=== PATIENT | male | born 1965 | race Caucasian/White ===

== ENCOUNTER 2021-02-16 05:12 | Emergency (ER) | payer MEDICARE, SELFPAY ==
[2021-02-16] VITALS (15 sets, daily range): BP systolic 112–142; BP diastolic 68–98; PULSE 80–120; RESP 11–18; TEMP 36.7–37.1; O2SAT 99–100; BMI 20.2
--- NOTE | ~2021-02-16 | CT_ITS ---
EXAMINATION: NONCONTRAST HEAD CT NONCONTRAST CERVICAL SPINE CT INDICATION INFORMATION: Fall, EtOH COMPARISON: None TECHNIQUE: Separate noncontrast CT examinations of the head and cervical spine were performed. Coronal head CT images and coronal and sagittal cervical spine images were created at the technologist workstation. DLP: 1067 mGy-cm DOSE LOWERING TECHNIQUES: This CT examination was performed using dose optimization techniques as appropriate, variously including the following: - Automated exposure control - Adjustment of mA and/or kV according to patient size (this includes techniques or standardized protocols for targeted exams were dose is matched to indication/reason for exam; i.e. extremities or head) - Use of iterative reconstruction technique FINDINGS: Head: There is no evidence of acute intracranial hemorrhage or territorial infarction. No abnormal mass-effect or midline shift is seen. Smith to white matter differentiation is well preserved. No extra-axial fluid collections are identified. The ventricles are normal in size. There is no abnormal attenuation within the brain parenchyma. The osseous structures and soft tissues are normal. The mastoid air cells and visualized portions of the paranasal sinuses are well-aerated. Cervical spine: There is grade 1 anterolisthesis of C2 on C3 and C3 on C4 which is favored to be chronic/degenerative in nature in the setting of multilevel moderate facet arthropathy. Vertebral body heights are maintained. There is mild multilevel disc space narrowing and minimal endplate osteophyte formation. No evidence of acute fracture. No prevertebral soft tissue swelling. Visualized portions of the lung apices are unremarkable. The thyroid gland is unremarkable. CT/CT cervical spine wo con IMPRESSION: No acute findings identified in the head or cervical spine. Chronic appearing and degenerative changes as noted above.
--- NOTE | 2021-02-16 05:18 | ED.GENADULT ---
HPI - General Adult General Chief complaint: Fall Stated complaint: head lac Time Seen by Provider: 02/16/21 05:17 Source: patient and EMS Mode of arrival: EMS Limitations: no limitations History of Present Illness HPI narrative: Patient is coming from home, patient is known to drink alcohol. Patient states that he was getting up to go to the bathroom, slipped in the bathroom and hit his head on the floor. Patient did not lose consciousness, patient is not on any blood thinners. However, patient has a large laceration to the right side of the scalp. Per EMS, patient had perfuse bleeding and lost a significant amount of blood in his apartment. Patient complaining of neck pain due to the c-collar but denies having pain before that. Patient denies any other injuries. Related Data Allergies Allergy/AdvReac Type Severity Reaction Status Date / Time morphine [MORPHINE] AdvReac Unknown ITCHY Verified 02/16/21 05:32 PEPPERS Allergy Unknown HIVES Uncoded 02/16/21 05:32 Review of Systems Review of Systems: Constitutional : No Weight loss, No Fever, No Chills, No Night Sweats, No Fatigue, No Malaise ENT/Mouth : No Hearing loss, No Ear Pain, No Nasal Congestion, No Sinus Pain, No Hoarseness, No sore throat, No Rhinorrhea, No Swallowing Difficulty Eyes: No Eye Pain, No Swelling, No Redness, No Foreign Body, No Discharge, No Vision Changes Cardiovascular : No Chest Pain, No SOB, No Dyspnea on Exertion, No Orthopnea, No Edema, No Palpitations Respiratory : No Cough, No Sputum, No Wheezing, No Smoke Exposure, No Dyspnea Gastrointestinal : No Nausea, No Vomiting, No Diarrhea, No Constipation, No abdominal Pain, No Hematochezia, No Melena Genitourinary : no irregular bleeding, No Dysuria, No Urinary Frequency, No Hematuria, No Urinary Incontinence, No Urgency, No Flank Pain, No Urinary Flow Changes, No Hesitancy Musculoskeletal : No joint pain, No Myalgias, No Joint Swelling Skin : laceration to the right side of the scalp Neuro : No Weakness, No Numbness, No Paresthesias, No Loss of Consciousness, No Dizziness, No Headache Psych : No Anxiety/Panic, No Depression, No SI/HI/AH/VH, No Social Issues, Heme/Lymph: No Bruising, No Bleeding,No Lymphadenopathy Endocrine : No Polyuria, No Polydipsia, No Temperature Intolerance [facility] Past Medical History Medical History Alcohol abuse TBI (traumatic brain injury) Social History Social History Alcohol intake: current Alcohol intake frequency: holidays/special occasions only Patient Tobacco Use Status: Never used Tobacco Use of substances other than those prescribed or required for medical reasons: No Advance Directives: No Advance Directives Information Provided: Yes Physical Exam Vital Signs: Vital Signs: Last Vital Signs Temp 98.0 F 02/16/21 05:52 Pulse 120 H 02/16/21 06:00 Resp 16 02/16/21 05:52 BP 112/80 02/16/21 05:52 Pulse Ox 100 02/16/21 05:52 Body Mass Index 20.2 Const: Other: Appearance: Alert. Oriented X3. No acute distress. Eyes: Pupils equal, round and reactive to light. ENT: Pharynx normal. Neck: Normal inspection. Neck supple. No lymph nodes noted. No crepitus CVS: Normal heart rate and rhythm. Pulses normal. Normal S1 and S2 Respiratory: No respiratory distress. Breath sounds normal. No Wheezing. No rales Abdomen: Soft and nontender. No rigidity. No distention. good BS x4 Skin: Skin warm and dry. Patient is pale, Normal skin turgor. Extremities: No lower extremity edema. No Lacerations. No Rash Neuro: Oriented X 3. No motor deficit. No sensory deficit. Moving all extermities. No slurred speech. Neurologically intact Course Course Course Narrative: Head and neck CT do not show any acute pathology Patient had profuse bleeding from 1 small artery, which was sutured with Vicryl. Bleeding stopped. Patient feeling well, bleeding stopped. Patient does look pale, H&H pending Patient received approximately for internal stitches, 5 external stitches Patient is a hard stick, Phobotomy is coming to draw blood. Labs pending. Sign-out given to Dr. Stark Procedures Laceration Laceration 1: Site: scalp Size (cm): 2 Description: linear Depth: involves muscle layer Local Anesthetic: lidocaine 2% Amount of anesthesia used (mL): 6 Pre-repair: wound explored Skin layer closed with: nylon Size (cm): 3-0 Number of sutures: 5 Technique: simple, interrupted Subcutaneous layer closed with: vicryl Size: 3-0 Number of sutures: 4 Technique: simple, interrupted Medical Decision Making Imaging Data CT cervical spine and head CT: Attestation: I personally reviewed and interpreted this imaging study as follows: Radiologist's impression: FINDINGS: Head: There is no evidence of acute intracranial hemorrhage or territorial infarction. No abnormal mass-effect or midline shift is seen. Smith to white matter differentiation is well preserved. No extra-axial fluid collections are identified. The ventricles are normal in size. There is no abnormal attenuation within the brain parenchyma. The osseous structures and soft tissues are normal. The mastoid air cells and visualized portions of the paranasal sinuses are well-aerated. Cervical spine: There is grade 1 anterolisthesis of C2 on C3 and C3 on C4 which is favored to be chronic/degenerative in nature in the setting of multilevel moderate facet arthropathy. Vertebral body heights are maintained. There is mild multilevel disc space narrowing and minimal endplate osteophyte formation. No evidence of acute fracture. No prevertebral soft tissue swelling. Visualized portions of the lung apices are unremarkable. The thyroid gland is unremarkable. CT/CT cervical spine wo con IMPRESSION: No acute findings identified in the head or cervical spine. Chronic appearing and degenerative changes as noted above. Discharge Plan Discharge Clinical Impression: Fall, Laceration of scalp Instructions: Laceration (ED), Fall Prevention for Older Adults (ED), Fall Prevention (ED) Additional Instructions: Your sutures need to be removed in 7-10 days. You may come to the emergency room, urgent care or with her primary care physician. If you see any signs of infection such as localized redness, pus drainage, fever or chills, please return to the emergency room. Please follow-up with your primary care physician tomorrow. If you have any worsening or new symptoms, please return to the emergency room or call 911
[2021-02-16] MEDS: Lidocaine HCl 2 % MPF 5 ML VIAL 10 ML INFILTRATI (05:51)
--- NOTE | 2021-02-16 06:50 | PC.NURSE ---
head lac was clean with saline solution ,patient was clean up and change into hospital attire ,bedding was also change , assist dr cross with patient lac suturing ,patient resting comfortable in bed .
[2021-02-16 07:09] LABS: MANUAL DIFF FLAG NO
[2021-02-16 07:10] LABS: Basophils Percent Auto 0.6 % (0-2); Imm Gran Abs Auto 0.02 X10*3/uL (0.00-0.03); Imm Gran Pct Auto 0.4 % (0.0-0.4); Lymphocytes Absolute Auto 1.8 X10*3/uL (1.2-4.9); Lymphocytes Percent Auto 34.3 % (20-40); Mean Corpuscular HGB Conc 32.6 g/dl (31.0-36.0); Mean Corpuscular Hemoglobin 34.8 pg (27.0-33.0); Mean Corpuscular Volume 106.7 fL (80-98); Mean Platelet Volume 9.6 fL (9.4-12.4); Monocytes Absolute Auto 0.5 X10*3/uL (0.1-1.2); Monocytes Percent Auto 9.2 % (2-11); Neutrophils Percent Auto 55.5 % (45-73); Platelet Count 120 X10*3/uL (160-400); Red Blood Count 1.64 X10*6/uL (4.60-5.80); Red Cell Distribution Width 14.9 % (11.0-16.0); White Blood Count 5.3 X10*3/uL (4.8-10.8)
[2021-02-16 07:29] LABS: Hemoglobin 5.7 g/dl (14.0-18.0)
[2021-02-16 07:30] LABS: Hematocrit 17.5 % (42-52)
[2021-02-16 07:35] LABS: Ethanol 176 mg/dL
[2021-02-16 07:40] LABS: Alanine Aminotransferase 23 U/L (0-40); Alkaline Phosphatase 191 U/L (39-117); Aspartate Amino Transferase 43 U/L (5-37); Bilirubin Direct 0.2 mg/dL (0.0-0.5); Bilirubin Total 0.3 mg/dL (0.0-1.0); Blood Urea Nitrogen 9 mg/dL (9-16); Calcium 7.4 mg/dL (8.4-10.2); Creatinine Clr Calc Pharmacy 60.2; Estimated Glomerular Filt Rate > 60; Glucose Random 144 mg/dL (60-115); Total Protein 5.1 g/dL (6.5-8.0)
[2021-02-16 08:03] LABS: Albumin Level 1.9 g/dL (3.5-5.0); Anion Gap 25 (12-20); Carbon Dioxide 20 mmol/L (22-29); Chloride 98 mmol/L (96-108); Potassium 3.9 mmol/L (3.3-5.1); Sodium 139 mmol/L (135-145)
[2021-02-16 08:26] LABS: OBS Int Ctl Valid YES; OBS1 NEGATIVE (NEGATIVE)
--- NOTE | 2021-02-16 08:28 | PC.NURSE ---
attempted to call lab to draw pts lab d.t tough stick. will call back again.
--- NOTE | 2021-02-16 08:41 | PC.NURSE ---
lab aware pt needs type and screen. this RN attempted for IV and was unsuccessful. Another RN to try with ultrasound.
[2021-02-16] MEDS: ondansetron HCL 4 MG/2 ML VIAL IVPUSH (10:11)
--- NOTE | 2021-02-16 12:40 | PC.NURSE ---
blood going at very slow rate, per MD blood on pressure bag at this time. vss.
== END 2021-02-16 17:15 | disposition home or self-care (01) ==
PROVIDERS: Emergency Medicine; Emergency Provider Emergency Medicine
DX: S01.01XA Laceration without foreign body of scalp, initial encounter (principal); W01.10XA Fall on same level from slipping, tripping and stumbling with subsequent striking against unspecified object, initial encounter; F10.10 Alcohol abuse, uncomplicated; Y90.6 Blood alcohol level of 120-199 mg/100 ml; Y93.01 Activity, walking, marching and hiking; Y92.002 Bathroom of unspecified non-institutional (private) residence as the place of occurrence of the external cause; Y99.9 Unspecified external cause status; E11.9 Type 2 diabetes mellitus without complications
CPT/HCPCS: 12031; 36415; 36430; 70450; 72125; 80048; 80076; 82077; 82272; 85025; 86850; 86900; 86901; 86923; 99285; J2405; P9016

== ENCOUNTER 2021-03-03 21:39 | Inpatient (IN) | payer MEDICARE, SELFPAY ==
[2021-03-03] VITALS (11 sets, daily range): BP systolic 59–119; BP diastolic 36–81; PULSE 29–74; RESP 20–28; TEMP 31.2–32.4; O2SAT 79–96; BMI 25.0
--- NOTE | ~2021-03-03 | CT_ITS ---
EXAMINATION: CT CHEST, ABDOMEN AND PELVIS WITHOUT CONTRAST CLINICAL INFORMATION: Hypoxia. Unresponsive. Abdominal pain. COMPARISON: Chest x-ray March 03, 2021 TECHNIQUE: Multidetector volumetric CT imaging of the chest, abdomen and pelvis was obtained without oral or intravenous contrast. Coronal and sagittal reformatted images are performed at CT scanner [This CT examination was performed using dose optimization techniques as appropriate, variously including the following: *Automated exposure control *Adjustment of mA and/or kV according to patient size (this includes techniques or standardized protocols for targeted exams where dose is matched to indication/reason for exam; i.e. extremities or head) *Use of iterative reconstruction technique] DLP: 1806 mGy-cm. FINDINGS: Artifact from imaging with patient's arms at the side. There is breathing motion. CT CHEST: Lungs: Dense consolidation with air bronchogram at the dependent left lung base. There are patchy parenchymal airspace opacities in the right lower lobe. There are also a few smaller patchy airspace opacities in the anterior left upper lobe. Mediastinum: No mediastinal mass or significant lymphadenopathy. There are shotty subcentimeter lymph nodes at the pretracheal retrovascular space and AP window. Pleura: Small volume bilateral dependent pleural effusions. Axilla: No lymphadenopathy. CT ABDOMEN AND PELVIS: Liver, Gallbladder and Biliary Tree: Marked low density of liver parenchyma consistent with fatty change. No focal liver lesion or intrahepatic bile duct dilatation. Right lobe of liver measures 15 cm superior inferior. Gallbladder is moderately distended. No edema around the gallbladder. No calcified gallstone. No dilatation of the common bile duct. Pancreas: Multiple coarse calcifications in the parenchyma of the pancreas consistent with a chronic pancreatitis. No acute abnormality. No acute inflammation. No mass or pseudocyst. No pancreatic duct dilatation. Spleen: Spleen normal in size and contour. No focal lesion. Adrenal Glands: Adrenal glands are normal in size. No focal mass. Kidneys and Ureters: The kidneys are normal in size, shape, and attenuation. No hydronephrosis, hydroureter, or calculi seen. No perinephric stranding. Bladder: Bladder is empty. Mcmanus catheter within the bladder. Gastrointestinal Tract: There are scattered diverticula of the colon. There is no diverticulitis. There is no bowel wall thickening /edema. There is no bowel obstruction. There is a moderate volume of stool in the colon. The appendix is nonvisualized . The small bowel loops are unremarkable. The stomach is normal. There is no hiatal hernia. Mesentery: Moderate volume of abdominal ascites. No free air. No focal inflammation or abscess. Abdominal Wall: No significant hernia is appreciated. Lymph Nodes: Normal. Vascular: Unremarkable. Pelvic Viscera: [place] for penile implant in right lower quadrant. Osseous Structures: No acute osseous abnormality. Moderate degenerative spondylosis of the spine. CT/CT abdomen pelvis wo con IMPRESSION: 1. CT chest. Bilateral airspace disease and small bilateral pleural effusions. 2. Marked low attenuation of liver parenchyma, fatty change. 3. Calcifications of pancreas due to chronic pancreatitis. No acute inflammation.. 4. Moderate volume of abdominal ascites 5. Mcmanus catheter present.
--- NOTE | ~2021-03-03 | CT_ITS ---
EXAMINATION: CT HEAD WITHOUT CONTRAST CLINICAL INFORMATION: Unresponsive COMPARISON: 02/16/2021 TECHNIQUE: Contiguous axial imaging was performed from the skull base to vertex without intravenous contrast. This CT examination was performed using dose optimization techniques as appropriate, variously including the following: * Automated exposure control * Adjustment of mA and/or kV according to patient size (this includes techniques or standardized protocols for targeted exams where dose is matched to indication/reason for exam; i.e. extremities or head) Use of iterative reconstruction technique DLP: 742 mGy-cm. FINDINGS: There is no evidence of acute intracranial hemorrhage or territorial infarction. No abnormal mass effect or midline shift is seen. Smith to white matter differentiation is well preserved. No extra-axial fluid collections are identified. No hydrocephalus. No significant volume loss. Patchy periventricular and deep white matter hypoattenuation is consistent with mild small vessel ischemic changes. The osseous structures and soft tissues are normal. The mastoid air cells and visualized portions of the paranasal sinuses are well aerated. CT/CT head/brain wo con IMPRESSION: No acute intracranial pathology.
--- NOTE | ~2021-03-03 | XR_ITS ---
EXAMINATION: XR CHEST CLINICAL INFORMATION: Unresponsive. Hypoxia. COMPARISON: None TECHNIQUE: Frontal view of the chest was obtained. FINDINGS: Small layering left-sided pleural effusion is noted. Bilateral perihilar and right lower lobar nonspecific patchy airspace disease is present. Specific note is made of dense retrocardiac airspace consolidation at left lower lobe. The cardiac mediastinal silhouette is within normal limits. Visualized upper abdomen is unremarkable. XR/XR chest 1V IMPRESSION: Abnormal chest radiograph showing evidence of bilateral perihilar and right lower lobar patchy airspace disease and dense airspace consolidation at left lower lobe in the retrocardiac region associated with layering small left-sided pleural effusion.
--- NOTE | ~2021-03-03 | XR_ITS ---
EXAMINATION: XR CHEST CLINICAL INFORMATION: Confirm tube placement COMPARISON: 03/03/2021 10:10 PM TECHNIQUE: Frontal view of the chest was obtained. FINDINGS: Since the prior study, the patient has been intubated with the ET tube about 4.8 cm above the nyla. An NG tube has been placed with its tip in the stomach. A right IJ catheter has been placed with its tip in the SVC. Again seen is dense retrocardiac opacity with obscuration left hemidiaphragm consistent with atelectasis/collapse and or effusion which appears increased when compared to the recent study. Bilateral patchy diffuse airspace disease also appears increased when compared to the study from 2 hours ago. XR/XR chest 1V IMPRESSION: ET tube NG tube and right IJ line all appear to be in good position. Worsening pulmonary disease as described above
--- NOTE | 2021-03-03 21:50 | ECG_ITS ---
Test Reason : unresponsive Blood Pressure : / mmHG Vent. Rate : 122 BPM Atrial Rate : 141 BPM P-R Int : 000 ms QRS Dur : 072 ms QT Int : 346 ms P-R-T Axes : 000 063 254 degrees QTc Int : 493 ms Poor data quality Possible Sinus bradycardia Low voltage QRS ST & T wave abnormality, consider inferior ischemia Abnormal ECG When compared with ECG of 23-DEC-2014 09:14, Significant changes have occurred Clinical Correlation Advised Referred By: Elba Bhatt Electronically Signed By:JUAN M LYN MD
[2021-03-03 22:06] LABS: VBG Base Excess -8.7 mmol/L; VBG HCO3 15 mmol/L (22-26); VBG pCO2 25 mmHg; VBG pH 7.37 (7.32-7.43); VBG pO2 78 mmHg; Venous Blood Gas Refer to POC result
[2021-03-03 22:12] LABS: Glucose, Whole Blood 130 mg/dL (60-115)
[2021-03-03 22:17] LABS: Appearance Urine HAZY; Color Urine YELLOW; Glucose Urine UA NEG (NEG); Leukocyte Esterase Urine 3+ (NEG); Nitrite Urine NEG (NEG); Specific Gravity - Urine 1.015 (1.005-1.025); UACC Culture Trigger YES; Urine Blood 2+ (NEG); Urine Ketones 5 MG/DL (NEG); Urine Protein TRACE MG/DL (NEG-TRACE)
[2021-03-03 22:19] LABS: OBS Int Ctl Valid YES; OBS1 POSITIVE (NEGATIVE)
[2021-03-03 22:23] LABS: Ethanol < 10 mg/dL
[2021-03-03 22:23] LABS: Lactic Acid 12.7 mmol/L (0.5-2.0)
[2021-03-03 22:24] LABS: INTERNATIONAL NORM RATIO 2.7 (0.9-1.1); Prothrombin Time 30.8 SEC (9.9-13.0)
[2021-03-03 22:26] LABS: WBC Urine 30-49 /HPF (0-4)
[2021-03-03 22:27] LABS: COVID-19 Test Negative (Negative)
[2021-03-03 22:27] LABS: Bacteria Urine 3+ /LPF; Mucus Urine TRACE /LPF; Renal Epithelial Cells Urine TRACE /LPF; WBC Clumps Urine NOTED
[2021-03-03 22:29] LABS: Alanine Aminotransferase 34 U/L (0-40); Albumin Level 1.4 g/dL (3.5-5.0); Alkaline Phosphatase 264 U/L (39-117); Anion Gap 27 (12-20); Aspartate Amino Transferase 34 U/L (5-37); Bilirubin Total 0.4 mg/dL (0.0-1.0); Blood Urea Nitrogen 21 mg/dL (9-16); Calcium 6.8 mg/dL (8.4-10.2); Carbon Dioxide 15 mmol/L (22-29); Chloride 90 mmol/L (96-108); Creatinine Clr Calc Pharmacy 17.3; Estimated Glomerular Filt Rate 15; Glucose Random 144 mg/dL (60-115); Magnesium 1.3 mg/dL (1.6-2.6); Potassium 3.7 mmol/L (3.3-5.1); Sodium 128 mmol/L (135-145); Total Protein 4.3 g/dL (6.5-8.0)
[2021-03-03] MEDS: cefTRIAXone sodium 1 GM in 0.9 % Sodium Chloride 50 ML IV (22:30)
[2021-03-03 22:31] LABS: Amphetamine Screen Urine Not Detected (Not Detect); Barbiturates, Urine Not Detected (Not Detect); Benzodiazepines Screen Urine Not Detected (Not Detect); Cannabinoid Screen Urine Not Detected (Not Detect); Cocaine Screen Urine Not Detected (Not Detect); Fentanyl, urine POSITIVE (Not Detect); Opiate Screen Urine POSITIVE (Not Detect); Phencyclidine Screen Urine Not Detected (Not Detect)
[2021-03-03 22:31] LABS: Troponin-I High Sensitivity 5.8 ng/L (<3.5-35.0)
[2021-03-03 22:32] LABS: Hematocrit 22.4 % (42.0-52.0); Hemoglobin 7.7 g/dl (14.0-18.0); Mean Corpuscular HGB Conc 34.4 g/dl (31.0-36.0); Mean Corpuscular Hemoglobin 33.2 pg (27.0-33.0); Mean Corpuscular Volume 96.6 fL (80.0-98.0); Mean Platelet Volume 11.7 fL (9.4-12.4); Red Blood Count 2.32 X10*6/uL (4.60-5.80); Red Cell Distribution Width 17.2 % (11.0-16.0)
--- NOTE | 2021-03-03 22:39 | ED_ITS ---
HPI - Altered Mental Status General Chief Complaint: Altered Mental Status Stated Complaint: Unresponsive Time Seen by Provider: 03/03/21 21:50 Source: EMS Mode of arrival: EMS History of Present Illness HPI narrative: 55-year-old male with history of IVDA who is brought in by EMS from home after being found unresponsive, hypoxic, hypotensive, and hypoglycemic. As per EMS there was limited information able to be obtained from family and they state that patient was given both D10, glucagon, and Narcan. EMS states that EN route patient was noted to become more responsive but only to pain, but they did not note pinpoint pupils on initial evaluation. EMS states that on nasal cannula patient was able to be oxygenated to 98%. Related Data Allergies Allergy/AdvReac Type Severity Reaction Status Date / Time morphine [MORPHINE] AdvReac Unknown ITCHY Verified 02/16/21 05:32 PEPPERS Allergy Unknown HIVES Uncoded 02/16/21 05:32 Review of Systems Review of Systems: Yes Unobtainable due to mental condition PMFSH Past Medical History Source: nursing notes reviewed Medical History Alcohol abuse TBI (traumatic brain injury) Social History Social History Household Members: Unknown / Unable to assess Unable to assess alcohol history related to: Unable to respond and Unknown Alcohol intake: current Alcohol intake frequency: holidays/special occasions only Patient Tobacco Use Status: Never used Tobacco Physical Exam Vital Signs: Vital Signs: Last Vital Signs Temp 96.6 F L 03/04/21 11:00 Pulse 74 03/04/21 11:00 Resp 27 H 03/04/21 11:00 BP 86/43 L 03/04/21 11:00 Pulse Ox 88 L 03/04/21 11:00 Body Mass Index 25.0 VITAL SIGNS: Reviewed. GENERAL: Chronically ill, cachectic, HEAD: Normocephalic/atraumatic EYES: PERRLA, EOMI OROPHARYNX: no oral lesions noted, posterior pharynx clear, dry mucosa NECK: Supple, no adenopathy LUNGS: No breath sounds noted in left lower base and scattered coarse rhonchi without wheeze or rales noted, tachypnea, increased work of breathing. SpO2<97> 100% non-rebreather CARDIOVASCULAR: Sinus bradycardia and rhythm without noted murmurs, no JVD or lower extremity edema. ABDOMEN: Soft, diffuse tenderness noted on palpation, non-distended with bowel sounds. MUSCULOSKELETAL: No tenderness, deformities, or effusions noted on gross inspection. EXTREMITIES: No cyanosis, clubbing but some mild edema noted bilaterally without erythema or induration. SKIN: Inspection of the skin reveals no rashes, pallor positive, skin turgor poor, cool to touch NEUROLOGIC: GCS-10. Spontaneous movement of all 4 extremities noted Course Course Course Narrative: 55-year-old male with history and clinical presentation on review of vital signs, lab work consistent with lactic acidosis initially tho ught to be secondary to intra-abdominal pathology and/or pneumonia, however on review of CT of abdomen pelvis no acute intra-abdominal findings were noted other than ascites. Chest imaging consistent with left lower lobe consolidation with pen she infiltrates throughout and given patient's observed intermittent episodes brownish vomitus concern for upper GI bleed when taken in conjunction with positive guaiac of stool. Patient was also noted to be profoundly hypothermic. Patient returned from the CT scanner and was noted to have a significant decline in hemodynamics becoming progressively hypotensive and bradycardic despite having the Jaskaran Hugger in place. Decision was made to start pressors with plan to intubate thereafter. In the process of starting patient on vasopressors he was noted to become progressively bradycardic and pulseless. CPR was initiated @ 2320 (please refer to the code sheet), but in short patient was given 1 round of epi as well as 1 amp of bicarb with resumption of blood pressure as well as palpable pulses although patient remained bradycardic and hypothermic. During CPR patient was intubated by the ICU PA and patient also had triple-lumen IJ catheter placed in sterile fashion. The Levophed was subsequently stopped and phenylephrine was started which was then supplemented with epinephrine drip and gradual improvement of blood pressure as well as heart rate. 0040: Dr. Bush arrived and care was transitioned to his service and patient received 2 additional amps of bicarb, was placed on a propofol drip, and received 1 mg of atropine. Patient remained on Jaskaran Hugger with minimal improvement in temperature. Patient was otherwise admitted to the intensive care unit. Reevaluation(s) Reevaluation #1: All attempts to contact emergency contact listed without success. Time: 22:39 MDM - Altered Mental Status Lab Data Result diagrams: 03/04/21 11:05 03/04/21 11:05 Labs: Lab Results 03/03/21 03/03/21 03/03/21 Range/Units 21:46 22:00 22:02 WBC 0.8 L* (4.8-10.8) X10*3/uL RBC 2.32 L (4.60-5.80) X10*6/uL Hgb 7.7 L (14.0-18.0) g/dl Hct 22.4 L (42.0-52.0) % MCV 96.6 (80.0-98.0) fL MCH 33.2 H (27.0-33.0) pg MCHC 34.4 (31.0-36.0) g/dl RDW 17.2 H (11.0-16.0) % Plt Count 75 L (160-400) X10*3/uL MPV 11.7 (9.4-12.4) fL Immature Gran % (Auto) Cancelled Neut % (Auto) Cancelled Lymph % (Auto) Cancelled [place] % (Auto) Cancelled Eos % (Auto) Cancelled Baso % (Auto) Cancelled Lymph # (Auto) Cancelled [place] # (Auto) Cancelled Eos # (Auto) Cancelled Baso # (Auto) Cancelled Abs Immat Gran (auto) Cancelled Absolute Neuts (auto) Cancelled Absolute Nucleated RBC 0.000 (0.0-0.012) X10*3/uL Nucleated RBC % (auto) 0.0 (0.0-0.2) /100WBC Neutrophils % (Manual) 47 (45-73) % Band Neutrophils % 6 H (3-5) % Lymphocytes % (Manual) 44 H (20-40) % Monocytes % (Manual) 2 (2-11) % Eosinophils % (Manual) (0-4) % Basophils % (Manual) (0-2) % Metamyelocytes % 1 % Abs Neuts (Manual) 0.4 L (2.0-8.3) X10*3/uL Lymphocytes # (Manual) 0.4 L (1.2-4.9) X10*3/uL Monocytes # (Manual) (0.1-1.2) X10*3/uL Nucleated RBCs (0-0) /100WBC Toxic Vacuolation PRES Platelet Estimate DECREASED (NORMAL) Large Platelets Plt Morphology Comment NORM RBC Morphology NOTED Microcytosis 1+ (5-14) /OIF Macrocytosis 1+ (5-14) /OIF Neo Cells 3+ ( /OIF Schistocytes 1+ (0-2) /OIF Smear Path Review Cancelled PT (9.9-13.0) SEC INR (0.9-1.1) VBG pH 7.37 (7.32-7.43) VBG pCO2 25 mmHg VBG pO2 78 mmHg VBG HCO3 15 L (22-26) mmol/L VBG O2 Saturation 94.0 % VBG Base Excess -8.7 mmol/L Sodium (135-145) mmol/L Potassium (3.3-5.1) mmol/L Chloride (96-108) mmol/L Carbon Dioxide (22-29) mmol/L Anion Gap (12-20) BUN (9-16) mg/dL Creatinine (0.5-1.4) mg/dL Estim Creat Clear Calc Estimated GFR POC Glucose 130 H (60-115) mg/dL Random Glucose (60-115) mg/dL Fasting Glucose (60-99) mg/dL Lactic Acid (0.5-2.0) mmol/L Lactic Acid Fup @ 2Hr (0.5-2.0) mmol/L Calcium (8.4-10.2) mg/dL Magnesium (1.6-2.6) mg/dL Total Bilirubin (0.0-1.0) mg/dL AST (5-37) U/L ALT (0-40) U/L Alkaline Phosphatase (39-117) U/L Total Creatine Kinase (38-174) U/L Troponin I High Sens (<3.5-35.0) ng/L Total Protein (6.5-8.0) g/dL Albumin (3.5-5.0) g/dL Procalcitonin ng/mL Urine Color Urine Appearance Urine pH (5.0-8.0) Ur Specific [place] (1.005-1.025) Urine Protein (NEG-TRACE) MG/DL Urine Glucose (UA) (NEG) MG/DL Urine Ketones (NEG) MG/DL Urine Blood (NEG) Urine Nitrite (NEG) Ur Leukocyte Esterase (NEG) Urine RBC (0) /HPF Urine WBC (0-4) /HPF Urine WBC Clumps Ur Squamous Epith Cells /LPF Ur Renal Epithelial Cell /LPF Urine Bacteria /LPF Hyaline Casts /LPF Urine Mucus /LPF Stool Occult Blood (NEGATIVE) Urine Opiates Screen (Not Detect) Urine Fentanyl Screen (Not Detect) Ur Barbiturates Screen (Not Detect) Ur Phencyclidine Scrn (Not Detect) Ur Amphetamines Screen (Not Detect) U Benzodiazepines Scrn (Not Detect) Urine Cocaine Screen (Not Detect) U Marijuana (THC) Screen (Not Detect) Ethyl Alcohol mg/dL COVID-19 (DMITRI) (Negative) COVID-19 Clin Com Blood Type Antibody Screen Crossmatch 03/03/21 03/03/21 03/03/21 Range/Units 22:02 22:02 22:02 WBC (4.8-10.8) X10*3/uL RBC (4.60-5.80) X10*6/uL Hgb (14.0-18.0) g/dl Hct (42.0-52.0) % MCV (80.0-98.0) fL MCH (27.0-33.0) pg MCHC (31.0-36.0) g/dl RDW (11.0-16.0) % Plt Count (160-400) X10*3/uL MPV (9.4-12.4) fL Immature Gran % (Auto) Neut % (Auto) Lymph % (Auto) [place] % (Auto) Eos % (Auto) Baso % (Auto) Lymph # (Auto) [place] # (Auto) Eos # (Auto) Baso # (Auto) Abs Immat Gran (auto) Absolute Neuts (auto) Absolute Nucleated RBC (0.0-0.012) X10*3/uL Nucleated RBC % (auto) (0.0-0.2) /100WBC Neutrophils % (Manual) (45-73) % Band Neutrophils % (3-5) % Lymphocytes % (Manual) (20-40) % Monocytes % (Manual) (2-11) % Eosinophils % (Manual) (0-4) % Basophils % (Manual) (0-2) % Metamyelocytes % % Abs Neuts (Manual) (2.0-8.3) X10*3/uL Lymphocytes # (Manual) (1.2-4.9) X10*3/uL Monocytes # (Manual) (0.1-1.2) X10*3/uL Nucleated RBCs (0-0) /100WBC Toxic Vacuolation Platelet Estimate (NORMAL) Large Platelets Plt Morphology Comment RBC Morphology Microcytosis /OIF Macrocytosis /OIF Neo Cells /OIF Schistocytes /OIF Smear Path Review PT 30.8 H (9.9-13.0) SEC INR 2.7 H (0.9-1.1) VBG pH (7.32-7.43) VBG pCO2 mmHg VBG pO2 mmHg VBG HCO3 (22-26) mmol/L VBG O2 Saturation % VBG Base Excess mmol/L Sodium (135-145) mmol/L Potassium (3.3-5.1) mmol/L Chloride (96-108) mmol/L Carbon Dioxide (22-29) mmol/L Anion Gap (12-20) BUN (9-16) mg/dL Creatinine (0.5-1.4) mg/dL Estim Creat Clear Calc Estimated GFR POC Glucose (60-115) mg/dL Random Glucose (60-115) mg/dL Fasting Glucose (60-99) mg/dL Lactic Acid (0.5-2.0) mmol/L Lactic Acid Fup @ 2Hr (0.5-2.0) mmol/L Calcium (8.4-10.2) mg/dL Magnesium (1.6-2.6) mg/dL Total Bilirubin (0.0-1.0) mg/dL AST (5-37) U/L ALT (0-40) U/L Alkaline Phosphatase (39-117) U/L Total Creatine Kinase (38-174) U/L Troponin I High Sens 5.8 (<3.5-35.0) ng/L Total Protein (6.5-8.0) g/dL Albumin (3.5-5.0) g/dL Procalcitonin ng/mL Urine Color Urine Appearance Urine pH (5.0-8.0) Ur Specific [place] (1.005-1.025) Urine Protein (NEG-TRACE) MG/DL Urine Glucose (UA) (NEG) MG/DL Urine Ketones (NEG) MG/DL Urine Blood (NEG) Urine Nitrite (NEG) Ur Leukocyte Esterase (NEG) Urine RBC (0) /HPF Urine WBC (0-4) /HPF Urine WBC Clumps Ur Squamous Epith Cells /LPF Ur Renal Epithelial Cell /LPF Urine Bacteria /LPF Hyaline Casts /LPF Urine Mucus /LPF Stool Occult Blood (NEGATIVE) Urine Opiates Screen (Not Detect) Urine Fentanyl Screen (Not Detect) Ur Barbiturates Screen (Not Detect) Ur Phencyclidine Scrn (Not Detect) Ur Amphetamines Screen (Not Detect) U Benzodiazepines Scrn (Not Detect) Urine Cocaine Screen (Not Detect) U Marijuana (THC) Screen (Not Detect) Ethyl Alcohol < 10 mg/dL COVID-19 (DMITRI) (Negative) COVID-19 Clin Com Blood Type Antibody Screen Crossmatch 03/03/21 03/03/21 03/03/21 Range/Units 22:03 22:05 22:05 WBC (4.8-10.8) X10*3/uL RBC (4.60-5.80) X10*6/uL Hgb (14.0-18.0) g/dl Hct (42.0-52.0) % MCV (80.0-98.0) fL MCH (27.0-33.0) pg MCHC (31.0-36.0) g/dl RDW (11.0-16.0) % Plt Count (160-400) X10*3/uL MPV (9.4-12.4) fL Immature Gran % (Auto) Neut % (Auto) Lymph % (Auto) [place] % (Auto) Eos % (Auto) Baso % (Auto) Lymph # (Auto) [place] # (Auto) Eos # (Auto) Baso # (Auto) Abs Immat Gran (auto) Absolute Neuts (auto) Absolute Nucleated RBC (0.0-0.012) X10*3/uL Nucleated RBC % (auto) (0.0-0.2) /100WBC Neutrophils % (Manual) (45-73) % Band Neutrophils % (3-5) % Lymphocytes % (Manual) (20-40) % Monocytes % (Manual) (2-11) % Eosinophils % (Manual) (0-4) % Basophils % (Manual) (0-2) % Metamyelocytes % % Abs Neuts (Manual) (2.0-8.3) X10*3/uL Lymphocytes # (Manual) (1.2-4.9) X10*3/uL Monocytes # (Manual) (0.1-1.2) X10*3/uL Nucleated RBCs (0-0) /100WBC Toxic Vacuolation Platelet Estimate (NORMAL) Large Platelets Plt Morphology Comment RBC Morphology Microcytosis /OIF Macrocytosis /OIF Neo Cells /OIF Schistocytes /OIF Smear Path Review PT (9.9-13.0) SEC INR (0.9-1.1) VBG pH (7.32-7.43) VBG pCO2 mmHg VBG pO2 mmHg VBG HCO3 (22-26) mmol/L VBG O2 Saturation % VBG Base Excess mmol/L Sodium 128 L (135-145) mmol/L Potassium 3.7 (3.3-5.1) mmol/L Chloride 90 L (96-108) mmol/L Carbon Dioxide 15 L (22-29) mmol/L Anion Gap 27 H (12-20) BUN 21 H D (9-16) mg/dL Creatinine 4.14 H* (0.5-1.4) mg/dL Estim Creat Clear Calc 17.3 Estimated GFR 15 POC Glucose (60-115) mg/dL Random Glucose 144 H (60-115) mg/dL Fasting Glucose (60-99) mg/dL Lactic Acid 12.7 H* (0.5-2.0) mmol/L Lactic Acid Fup @ 2Hr (0.5-2.0) mmol/L Calcium 6.8 L D (8.4-10.2) mg/dL Magnesium 1.3 L* (1.6-2.6) mg/dL Total Bilirubin 0.4 (0.0-1.0) mg/dL AST 34 (5-37) U/L ALT 34 (0-40) U/L Alkaline Phosphatase 264 H D (39-117) U/L Total Creatine Kinase 88 (38-174) U/L Troponin I High Sens (<3.5-35.0) ng/L Total Protein 4.3 L (6.5-8.0) g/dL Albumin 1.4 L D (3.5-5.0) g/dL Procalcitonin ng/mL Urine Color Urine Appearance Urine pH (5.0-8.0) Ur Specific [place] (1.005-1.025) Urine Protein (NEG-TRACE) MG/DL Urine Glucose (UA) (NEG) MG/DL Urine Ketones (NEG) MG/DL Urine Blood (NEG) Urine Nitrite (NEG) Ur Leukocyte Esterase (NEG) Urine RBC (0) /HPF Urine WBC (0-4) /HPF Urine WBC Clumps Ur Squamous Epith Cells /LPF Ur Renal Epithelial Cell /LPF Urine Bacteria /LPF Hyaline Casts /LPF Urine Mucus /LPF Stool Occult Blood (NEGATIVE) Urine Opiates Screen (Not Detect) Urine Fentanyl Screen (Not Detect) Ur Barbiturates Screen (Not Detect) Ur Phencyclidine Scrn (Not Detect) Ur Amphetamines Screen (Not Detect) U Benzodiazepines Scrn (Not Detect) Urine Cocaine Screen (Not Detect) U Marijuana (THC) Screen (Not Detect) Ethyl Alcohol mg/dL COVID-19 (DMITRI) Negative (Negative) COVID-19 Clin Com See Note Blood Type Antibody Screen Crossmatch 03/03/21 03/03/21 03/03/21 Range/Units 22:06 22:06 22:12 WBC (4.8-10.8) X10*3/uL RBC (4.60-5.80) X10*6/uL Hgb (14.0-18.0) g/dl Hct (42.0-52.0) % MCV (80.0-98.0) fL MCH (27.0-33.0) pg MCHC (31.0-36.0) g/dl RDW (11.0-16.0) % Plt Count (160-400) X10*3/uL MPV (9.4-12.4) fL Immature Gran % (Auto) Neut % (Auto) Lymph % (Auto) [place] % (Auto) Eos % (Auto) Baso % (Auto) Lymph # (Auto) [place] # (Auto) Eos # (Auto) Baso # (Auto) Abs Immat Gran (auto) Absolute Neuts (auto) Absolute Nucleated RBC (0.0-0.012) X10*3/uL Nucleated RBC % (auto) (0.0-0.2) /100WBC Neutrophils % (Manual) (45-73) % Band Neutrophils % (3-5) % Lymphocytes % (Manual) (20-40) % Monocytes % (Manual) (2-11) % Eosinophils % (Manual) (0-4) % Basophils % (Manual) (0-2) % Metamyelocytes % % Abs Neuts (Manual) (2.0-8.3) X10*3/uL Lymphocytes # (Manual) (1.2-4.9) X10*3/uL Monocytes # (Manual) (0.1-1.2) X10*3/uL Nucleated RBCs (0-0) /100WBC Toxic Vacuolation Platelet Estimate (NORMAL) Large Platelets Plt Morphology Comment RBC Morphology Microcytosis /OIF Macrocytosis /OIF Neo Cells /OIF Schistocytes /OIF Smear Path Review PT (9.9-13.0) SEC INR (0.9-1.1) VBG pH (7.32-7.43) VBG pCO2 mmHg VBG pO2 mmHg VBG HCO3 (22-26) mmol/L VBG O2 Saturation % VBG Base Excess mmol/L Sodium (135-145) mmol/L Potassium (3.3-5.1) mmol/L Chloride (96-108) mmol/L Carbon Dioxide (22-29) mmol/L Anion Gap (12-20) BUN (9-16) mg/dL Creatinine (0.5-1.4) mg/dL Estim Creat Clear Calc Estimated GFR POC Glucose (60-115) mg/dL Random Glucose (60-115) mg/dL Fasting Glucose (60-99) mg/dL Lactic Acid (0.5-2.0) mmol/L Lactic Acid Fup @ 2Hr (0.5-2.0) mmol/L Calcium (8.4-10.2) mg/dL Magnesium (1.6-2.6) mg/dL Total Bilirubin (0.0-1.0) mg/dL AST (5-37) U/L ALT (0-40) U/L Alkaline Phosphatase (39-117) U/L Total Creatine Kinase (38-174) U/L Troponin I High Sens (<3.5-35.0) ng/L Total Protein (6.5-8.0) g/dL Albumin (3.5-5.0) g/dL Procalcitonin ng/mL Urine Color YELLOW Urine Appearance HAZY Urine pH 6.0 (5.0-8.0) Ur Specific [place] 1.015 (1.005-1.025) Urine Protein TRACE (NEG-TRACE) MG/DL Urine Glucose (UA) NEG (NEG) MG/DL Urine Ketones 5 (NEG) MG/DL Urine Blood 2+ H (NEG) Urine Nitrite NEG (NEG) Ur Leukocyte Esterase 3+ H (NEG) Urine RBC 10-14 H (0) /HPF Urine WBC 30-49 H (0-4) /HPF Urine WBC Clumps NOTED Ur Squamous Epith Cells NONE /LPF Ur Renal Epithelial Cell TRACE /LPF Urine Bacteria 3+ /LPF Hyaline Casts 1-4 /LPF Urine Mucus TRACE /LPF Stool Occult Blood POSITIVE (NEGATIVE) Urine Opiates Screen POSITIVE H (Not Detect) Urine Fentanyl Screen POSITIVE H (Not Detect) Ur Barbiturates Screen Not Detected (Not Detect) Ur Phencyclidine Scrn Not Detected (Not Detect) Ur Amphetamines Screen Not Detected (Not Detect) U Benzodiazepines Scrn Not Detected (Not Detect) Urine Cocaine Screen Not Detected (Not Detect) U Marijuana (THC) Screen Not Detected (Not Detect) Ethyl Alcohol mg/dL COVID-19 (DMITRI) (Negative) COVID-19 Clin Com Blood Type Antibody Screen Crossmatch 03/03/21 03/04/21 03/04/21 Range/Units 23:23 00:11 00:11 WBC (4.8-10.8) X10*3/uL RBC (4.60-5.80) X10*6/uL Hgb (14.0-18.0) g/dl Hct (42.0-52.0) % MCV (80.0-98.0) fL MCH (27.0-33.0) pg MCHC (31.0-36.0) g/dl RDW (11.0-16.0) % Plt Count (160-400) X10*3/uL MPV (9.4-12.4) fL Immature Gran % (Auto) Neut % (Auto) Lymph % (Auto) [place] % (Auto) Eos % (Auto) Baso % (Auto) Lymph # (Auto) [place] # (Auto) Eos # (Auto) Baso # (Auto) Abs Immat Gran (auto) Absolute Neuts (auto) Absolute Nucleated RBC (0.0-0.012) X10*3/uL Nucleated RBC % (auto) (0.0-0.2) /100WBC Neutrophils % (Manual) (45-73) % Band Neutrophils % (3-5) % Lymphocytes % (Manual) (20-40) % Monocytes % (Manual) (2-11) % Eosinophils % (Manual) (0-4) % Basophils % (Manual) (0-2) % Metamyelocytes % % Abs Neuts (Manual) (2.0-8.3) X10*3/uL Lymphocytes # (Manual) (1.2-4.9) X10*3/uL Monocytes # (Manual) (0.1-1.2) X10*3/uL Nucleated RBCs (0-0) /100WBC Toxic Vacuolation Platelet Estimate (NORMAL) Large Platelets Plt Morphology Comment RBC Morphology Microcytosis /OIF Macrocytosis /OIF Neo Cells /OIF Schistocytes /OIF Smear Path Review PT (9.9-13.0) SEC INR (0.9-1.1) VBG pH (7.32-7.43) VBG pCO2 mmHg VBG pO2 mmHg VBG HCO3 (22-26) mmol/L VBG O2 Saturation % VBG Base Excess mmol/L Sodium (135-145) mmol/L Potassium (3.3-5.1) mmol/L Chloride (96-108) mmol/L Carbon Dioxide (22-29) mmol/L Anion Gap (12-20) BUN (9-16) mg/dL Creatinine (0.5-1.4) mg/dL Estim Creat Clear Calc Estimated GFR POC Glucose 106 (60-115) mg/dL Random Glucose (60-115) mg/dL Fasting Glucose (60-99) mg/dL Lactic Acid (0.5-2.0) mmol/L Lactic Acid Fup @ 2Hr 13.0 H* (0.5-2.0) mmol/L Calcium (8.4-10.2) mg/dL Magnesium (1.6-2.6) mg/dL Total Bilirubin (0.0-1.0) mg/dL AST (5-37) U/L ALT (0-40) U/L Alkaline Phosphatase (39-117) U/L Total Creatine Kinase (38-174) U/L Troponin I High Sens (<3.5-35.0) ng/L Total Protein (6.5-8.0) g/dL Albumin (3.5-5.0) g/dL Procalcitonin ng/mL Urine Color Urine Appearance Urine pH (5.0-8.0) Ur Specific [place] (1.005-1.025) Urine Protein (NEG-TRACE) MG/DL Urine Glucose (UA) (NEG) MG/DL Urine Ketones (NEG) MG/DL Urine Blood (NEG) Urine Nitrite (NEG) Ur Leukocyte Esterase (NEG) Urine RBC (0) /HPF Urine WBC (0-4) /HPF Urine WBC Clumps Ur Squamous Epith Cells /LPF Ur Renal Epithelial Cell /LPF Urine Bacteria /LPF Hyaline Casts /LPF Urine Mucus /LPF Stool Occult Blood (NEGATIVE) Urine Opiates Screen (Not Detect) Urine Fentanyl Screen (Not Detect) Ur Barbiturates Screen (Not Detect) Ur Phencyclidine Scrn (Not Detect) Ur Amphetamines Screen (Not Detect) U Benzodiazepines Scrn (Not Detect) Urine Cocaine Screen (Not Detect) U Marijuana (THC) Screen (Not Detect) Ethyl Alcohol mg/dL COVID-19 (DMITRI) (Negative) COVID-19 Clin Com Blood Type A Negative Antibody Screen NEGATIVE Crossmatch See Detail 03/04/21 03/04/21 03/04/21 Range/Units 00:54 00:54 00:54 WBC 1.5 L (4.8-10.8) X10*3/uL RBC 2.21 L (4.60-5.80) X10*6/uL Hgb 7.0 L* (14.0-18.0) g/dl Hct 22.2 L (42.0-52.0) % MCV 100.5 H (80.0-98.0) fL MCH 31.7 (27.0-33.0) pg MCHC 31.5 (31.0-36.0) g/dl RDW 16.9 H (11.0-16.0) % Plt Count 50 L D (160-400) X10*3/uL MPV 11.0 (9.4-12.4) fL Immature Gran % (Auto) Cancelled Neut % (Auto) Cancelled Lymph % (Auto) Cancelled [place] % (Auto) Cancelled Eos % (Auto) Cancelled Baso % (Auto) Cancelled Lymph # (Auto) Cancelled [place] # (Auto) Cancelled Eos # (Auto) Cancelled Baso # (Auto) Cancelled Abs Immat Gran (auto) Cancelled Absolute Neuts (auto) Cancelled Absolute Nucleated RBC 0.000 (0.0-0.012) X10*3/uL Nucleated RBC % (auto) 0.0 (0.0-0.2) /100WBC Neutrophils % (Manual) 30 L (45-73) % Band Neutrophils % 19 H (3-5) % Lymphocytes % (Manual) 40 (20-40) % Monocytes % (Manual) 6 (2-11) % Eosinophils % (Manual) 1 (0-4) % Basophils % (Manual) 2 (0-2) % Metamyelocytes % 2 % Abs Neuts (Manual) 0.7 L (2.0-8.3) X10*3/uL Lymphocytes # (Manual) 0.6 L (1.2-4.9) X10*3/uL Monocytes # (Manual) 0.1 (0.1-1.2) X10*3/uL Nucleated RBCs 2 H (0-0) /100WBC Toxic Vacuolation PRESENT Platelet Estimate DECREASED (NORMAL) Large Platelets PRESENT Plt Morphology Comment NOTED RBC Morphology NOTED Microcytosis /OIF Macrocytosis 1+ (5-14) /OIF Talent Cells 1+ (0-2) /OIF Schistocytes /OIF Smear Path Review PT (9.9-13.0) SEC INR (0.9-1.1) VBG pH (7.32-7.43) VBG pCO2 mmHg VBG pO2 mmHg VBG HCO3 (22-26) mmol/L VBG O2 Saturation % VBG Base Excess mmol/L Sodium 133 L (135-145) mmol/L Potassium 3.4 (3.3-5.1) mmol/L Chloride 100 (96-108) mmol/L Carbon Dioxide 12 L (22-29) mmol/L Anion Gap 24 H (12-20) BUN 18 H (9-16) mg/dL Creatinine 3.39 H (0.5-1.4) mg/dL Estim Creat Clear Calc 21.1 Estimated GFR 19 POC Glucose (60-115) mg/dL Random Glucose (60-115) mg/dL Fasting Glucose 112 H (60-99) mg/dL Lactic Acid (0.5-2.0) mmol/L Lactic Acid Fup @ 2Hr (0.5-2.0) mmol/L Calcium 5.7 L* D (8.4-10.2) mg/dL Magnesium (1.6-2.6) mg/dL Total Bilirubin 0.3 (0.0-1.0) mg/dL AST 49 H D (5-37) U/L ALT 29 (0-40) U/L Alkaline Phosphatase 187 H D (39-117) U/L Total Creatine Kinase (38-174) U/L Troponin I High Sens 4.5 (<3.5-35.0) ng/L Total Protein 3.2 L D (6.5-8.0) g/dL Albumin 1.1 L D (3.5-5.0) g/dL Procalcitonin ng/mL Urine Color Urine Appearance Urine pH (5.0-8.0) Ur Specific [place] (1.005-1.025) Urine Protein (NEG-TRACE) MG/DL Urine Glucose (UA) (NEG) MG/DL Urine Ketones (NEG) MG/DL Urine Blood (NEG) Urine Nitrite (NEG) Ur Leukocyte Esterase (NEG) Urine RBC (0) /HPF Urine WBC (0-4) /HPF Urine WBC Clumps Ur Squamous Epith Cells /LPF Ur Renal Epithelial Cell /LPF Urine Bacteria /LPF Hyaline Casts /LPF Urine Mucus /LPF Stool Occult Blood (NEGATIVE) Urine Opiates Screen (Not Detect) Urine Fentanyl Screen (Not Detect) Ur Barbiturates Screen (Not Detect) Ur Phencyclidine Scrn (Not Detect) Ur Amphetamines Screen (Not Detect) U Benzodiazepines Scrn (Not Detect) Urine Cocaine Screen (Not Detect) U Marijuana (THC) Screen (Not Detect) Ethyl Alcohol mg/dL COVID-19 (DMITRI) (Negative) COVID-19 Clin Com Blood Type Antibody Screen Crossmatch 03/04/21 03/04/21 Range/Units 00:54 00:56 WBC (4.8-10.8) X10*3/uL RBC (4.60-5.80) X10*6/uL Hgb (14.0-18.0) g/dl Hct (42.0-52.0) % MCV (80.0-98.0) fL MCH (27.0-33.0) pg MCHC (31.0-36.0) g/dl RDW (11.0-16.0) % Plt Count (160-400) X10*3/uL MPV (9.4-12.4) fL Immature Gran % (Auto) Neut % (Auto) Lymph % (Auto) [place] % (Auto) Eos % (Auto) Baso % (Auto) Lymph # (Auto) [place] # (Auto) Eos # (Auto) Baso # (Auto) Abs Immat Gran (auto) Absolute Neuts (auto) Absolute Nucleated RBC (0.0-0.012) X10*3/uL Nucleated RBC % (auto) (0.0-0.2) /100WBC Neutrophils % (Manual) (45-73) % Band Neutrophils % (3-5) % Lymphocytes % (Manual) (20-40) % Monocytes % (Manual) (2-11) % Eosinophils % (Manual) (0-4) % Basophils % (Manual) (0-2) % Metamyelocytes % % Abs Neuts (Manual) (2.0-8.3) X10*3/uL Lymphocytes # (Manual) (1.2-4.9) X10*3/uL Monocytes # (Manual) (0.1-1.2) X10*3/uL Nucleated RBCs (0-0) /100WBC Toxic Vacuolation Platelet Estimate (NORMAL) Large Platelets Plt Morphology Comment RBC Morphology Microcytosis /OIF Macrocytosis /OIF Neo Cells /OIF Schistocytes /OIF Smear Path Review PT (9.9-13.0) SEC INR (0.9-1.1) VBG pH 6.90 L* (7.32-7.43) VBG pCO2 58 mmHg VBG pO2 185 mmHg VBG HCO3 12 L (22-26) mmol/L VBG O2 Saturation 98.0 % VBG Base Excess -19.8 mmol/L Sodium (135-145) mmol/L Potassium (3.3-5.1) mmol/L Chloride (96-108) mmol/L Carbon Dioxide (22-29) mmol/L Anion Gap (12-20) BUN (9-16) mg/dL Creatinine (0.5-1.4) mg/dL Estim Creat Clear Calc Estimated GFR POC Glucose (60-115) mg/dL Random Glucose (60-115) mg/dL Fasting Glucose (60-99) mg/dL Lactic Acid (0.5-2.0) mmol/L Lactic Acid Fup @ 2Hr (0.5-2.0) mmol/L Calcium (8.4-10.2) mg/dL Magnesium (1.6-2.6) mg/dL Total Bilirubin (0.0-1.0) mg/dL AST (5-37) U/L ALT (0-40) U/L Alkaline Phosphatase (39-117) U/L Total Creatine Kinase (38-174) U/L Troponin I High Sens (<3.5-35.0) ng/L Total Protein (6.5-8.0) g/dL Albumin (3.5-5.0) g/dL Procalcitonin 0.84 ng/mL Urine Color Urine Appearance Urine pH (5.0-8.0) Ur Specific [place] (1.005-1.025) Urine Protein (NEG-TRACE) MG/DL Urine Glucose (UA) (NEG) MG/DL Urine Ketones (NEG) MG/DL Urine Blood (NEG) Urine Nitrite (NEG) Ur Leukocyte Esterase (NEG) Urine RBC (0) /HPF Urine WBC (0-4) /HPF Urine WBC Clumps Ur Squamous Epith Cells /LPF Ur Renal Epithelial Cell /LPF Urine Bacteria /LPF Hyaline Casts /LPF Urine Mucus /LPF Stool Occult Blood (NEGATIVE) Urine Opiates Screen (Not Detect) Urine Fentanyl Screen (Not Detect) Ur Barbiturates Screen (Not Detect) Ur Phencyclidine Scrn (Not Detect) Ur Amphetamines Screen (Not Detect) U Benzodiazepines Scrn (Not Detect) Urine Cocaine Screen (Not Detect) U Marijuana (THC) Screen (Not Detect) Ethyl Alcohol mg/dL COVID-19 (DMITRI) (Negative) COVID-19 Clin Com Blood Type Antibody Screen Crossmatch Critical Care Time Critical Care Time Critical Care Time: Yes Total Critical Care Time: 72 Attestation: I personally attest to this time spent taking care of the patient. Discharge Plan Discharge Clinical Impression: Altered mental status, Septic shock, Acute respiratory failure Patient Disposition: Admitted As Inpatient Interventions: Admission Worksheet (ED) Last Done: 03/04/21 02:53 Discharge Date/Time: 03/04/21 02:00
[2021-03-03 22:43] LABS: Platelet Count 75 X10*3/uL (160-400); WBC ABN SCTR FOR CBC 1
[2021-03-03 23:12] LABS: White Blood Count 0.8 X10*3/uL (4.8-10.8)
[2021-03-03 23:17] LABS: Band Neutrophils Percent 6 % (3-5); Lymphocytes Absolute Manual 0.4 X10*3/uL (1.2-4.9); Lymphocytes Percent Manual 44 % (20-40); Metamyelocytes Percent 1 %; Monocytes Percent Manual 2 % (2-11); Neutrophils Absolute Manual 0.4 X10*3/uL (2.0-8.3); Neutrophils Percent Manual 47 % (45-73)
[2021-03-03 23:19] LABS: RBC Morphology NOTED
[2021-03-03 23:20] LABS: Platelet Estimate DECREASED (NORMAL); Schistocytes 1+ (0-2) /OIF
[2021-03-03 23:21] LABS: Microcytosis 1+ (5-14) /OIF; Platelet Morphology Comment NORM
[2021-03-03 23:22] LABS: Toxic Vacuolation PRES
[2021-03-03 23:23] LABS: Macrocytosis 1+ (5-14) /OIF
[2021-03-03 23:28] LABS: Glucose, Whole Blood 106 mg/dL (60-115)
[2021-03-03] MEDS: Etomidate 20 MG/10 ML VIAL 10 MG IVPUSH (23:31)
[2021-03-03] MEDS: 0.9 % Sodium Chloride 1,000 ML 999 ML IV (23:50)
[2021-03-03] MEDS: Pantoprazole Sodium 40 MG/10 ML VIAL 80 MG IVPUSH (23:55)
[2021-03-04] VITALS (29 sets, daily range): BP systolic 59–138; BP diastolic 42–89; PULSE 24–105; RESP 18–28; TEMP 30.3–35.9; O2SAT 85–100; BMI 26.2
--- NOTE | 2021-03-04 | ECG_ITS ---
Test Reason : unresponsive Blood Pressure : / mmHG Vent. Rate : 042 BPM Atrial Rate : 000 BPM P-R Int : 000 ms QRS Dur : 078 ms QT Int : 534 ms P-R-T Axes : 000 067 106 degrees QTc Int : 445 ms Junctional bradycardia Low voltage QRS RSR' or QR pattern in V1 suggests right ventricular conduction delay ST & T wave abnormality, consider anterolateral ischemia Abnormal ECG When compared with ECG of 04-MAR-2021 00:29, Inverted T waves have replaced nonspecific T wave abnormality in Anterior leads Referred By: Elba Bhatt Electronically Signed By:JUAN M LYN MD
[2021-03-04] MEDS: fentaNYL citrate/NS 1,000 MCG/100 ML PLAST..BAG 5 MCG IVCONT (00:01)
[2021-03-04 00:07] LABS: Reflex Lactate? Lactic Acid Added
[2021-03-04] MEDS: Pantoprazole Sodium 80 MG in 0.9 % Sodium Chloride 80 ML 10 MG IV ×2 (00:20→10:59)
[2021-03-04] MEDS: EPINEPHrine 5 MG in Dextrose 5 % 250 ML 41.64 MG IVCONT (00:22)
[2021-03-04] MEDS: Magnesium Sulfate/D5W 1 GM/100 ML PIGGYBACK IV (00:30)
[2021-03-04] MEDS: 0.9 % Sodium Chloride 1,000 ML 999 ML IV (00:30)
[2021-03-04] MEDS: Rocuronium Bromide 50 MG/5 ML VIAL IVPUSH (00:49)
[2021-03-04] MEDS: Cisatracurium Besylate 100 MG in 0.9 % Sodium Chloride 40 ML IVCONT (00:58)
[2021-03-04] MEDS: Atropine Sulfate 1 MG/10 ML SYRINGE IVPUSH (00:59)
[2021-03-04 01:00] LABS: Hematocrit 22.2 % (42.0-52.0); Mean Corpuscular HGB Conc 31.5 g/dl (31.0-36.0); Mean Corpuscular Hemoglobin 31.7 pg (27.0-33.0); Mean Corpuscular Volume 100.5 fL (80.0-98.0); Red Blood Count 2.21 X10*6/uL (4.60-5.80); Red Cell Distribution Width 16.9 % (11.0-16.0); WBC ABN SCTR FOR CBC 1
[2021-03-04 01:03] LABS: Platelet Count 50 X10*3/uL (160-400)
[2021-03-04 01:04] LABS: White Blood Count 1.5 X10*3/uL (4.8-10.8)
[2021-03-04 01:07] LABS: VBG Base Excess -19.8 mmol/L; VBG HCO3 12 mmol/L (22-26); VBG pCO2 58 mmHg; VBG pO2 185 mmHg
[2021-03-04 01:12] LABS: Venous Blood Gas Refer to POC result
[2021-03-04 01:25] LABS: Troponin-I High Sensitivity 4.5 ng/L (<3.5-35.0)
--- NOTE | 2021-03-04 01:37 | W.PM.CCCN ---
History of Present Illness Data of Consult Service Date: 03/04/21 Requesting physician: Elba Bhatt Primary Care Provider: Unknown Physician HPI I was called to the ED by Dr. Bhatt to see Mr. Worley because of shock of unclear etiology. I saw the patient at about 00:35 AM. The patient is a 55 yo M. We don't know anything about him. EMS was called because he was found unresponsive at home. Don't know who called EMS. EMS reported that at the scene, the patient was hypothermic, hypotensive, and hypoglycemic, with a blood glucose that I believe was 36. The patient was breathing, with reported sat of 98% on nasal cannula oxygen. The patient was given D10, glucagon, and Narcan.? He was BIBA to the ED at approximately 21:40. In the ED, the patient was grossly cachectic. He is responsive only to pain. He was breathing with a sat of 100% on non-rebreather face mask. Heart rate on arrival was 74, blood pressure 119/81. Temperature was 90.3 degrees. He was moving all 4 extremities spontaneously. Abdominal exam reportedly showed diffuse tenderness. Labs showed marked lactic acidosis with acute kidney injury. White count was 0.8, with hemoglobin of 7.7, platelet count of 75K. Venous blood gas showed a base excess of -8. Bicarb was 15, glucose was 140s, albumin was 1.4. INR was 2.7. He went for head, chest, and abdominal CT. The only remarkable finding was a small left lower lobe consolidation with air bronchograms. Head and abdominal CT were unremarkable, other than ascites. A Jaskaran Hugger was applied. The patient had brownish vomitus, concern for upper GI bleed. Stool was guaiac positive, but brown in color. After return from CT, the patient's hemodynamics deteriorated. The patient became progressively bradycardic and then pulseless. CPR was initiated. There was return of spontaneous circulation after 1 round of epi and 1 amp of bicarb. The patient was intubated and lined. Pressors were started, including epinephrine. I was called and arrived to see the patient at about 0035. The patient was grossly cachectic, with dry, leather-like skin diffusely. Had already had 3L of IVF plus 1 unit RBCs. Had JVD to the angle of the mandible. Abd was flat. No edema. My bedside ECHOCARDIOGRAM: Good image quality. Findings: 1. Probably mild LVH. 2. LV cavity size was normal. 3. With the patient on an epinephrine gtt at 0.2ug, LV function was normal, with EF at least 50%. No RWMAs. 4. RV size and fxn were normal. RV:LV cavity ratio about 0.8. 5. Both atria looked enlarged, about the same size as their respective ventricular cavities. 6. AV was trileaflet. The AV annulus looked dilated, but there was no AI by color davi. No 7. MV normal architecture with 2+ MR by color davi. 8. TV normal architecture with 2+ TR by color davi, with CWD envelope measuring 2.0 m/sec. Gradient 16mm 9. IVC measured about 1.65, with about 20% insp collapse. Focused sepsis exam was completed. I advised no further fluids. Repeat VBG showed severe metabolic acidosis. At this point, I advised bicarbonate by IV push and a bicarb infusion. I advised NMB because the patient was over breathing the ventilator. I adjusted the Jaskaran Hugger. Discussed with the ICU PA, then left to see another patient. IMPRESSION: 1. Underlying severe protein calorie malnutrition. 2. Refractory septic shock, of undetermined etiology. Need to get more information from the family about the patient's past medical history and what happened last night. 3. Acute respiratory failure. 4. Left lower lobe pneumonia. Probably minor. I doubt this is the cause of the patient's septic shock. Prognosis here is very grave. Seen many cases like this over the years. No survivors. I am doubtful that Mr. Worley will survive. Critical care time: 75+ minutes. [facility], [facility] Past Medical History Medical History Alcohol abuse TBI (traumatic brain injury) Social History Social History Household Members: Unknown / Unable to assess Unable to assess alcohol history related to: Unable to respond and Unknown Alcohol intake: current Alcohol intake frequency: holidays/special occasions only Patient Tobacco Use Status: Never used Tobacco Meds Allergies Allergy/AdvReac Type Severity Reaction Status Date / Time morphine [MORPHINE] AdvReac Unknown ITCHY Verified 02/16/21 05:32 PEPPERS Allergy Unknown HIVES Uncoded 02/16/21 05:32 Active Medications: Current Medications Norepinephrine Bitartrate (Levophed) 8 mg in 250 mls @ 15 mls/hr IVCONT .[id number] PEBBLES; Protocol Fentanyl (Sublimaze/Ns) 1,000 mcg in 100 mls @ 5 mls/hr IVCONT .Q20H PEBBLES; Protocol Pantoprazole Sodium 80 mg/ (Sodium Chloride) 100 mls @ 10 mls/hr IV .Q10H PEBBLES Last Admin: 03/04/21 00:20 Dose: 8 mg/hr, 10 mls/hr Documented by: Epinephrine 5 mg/ Dextrose 255 mls @ 0 mls/hr IVCONT .Q0M PEBBLES; Protocol Last Admin: 03/04/21 00:22 Dose: 0.2 mcg/kg/min, 41.64 mls/hr Documented by: Propofol (Diprivan) 1,000 mg in 100 mls @ 2.041 mls/hr IVCONT .Q24H PEBBLES; Protocol Cisatracurium Besylate 100 mg/ (Sodium Chloride) 50 mls @ 4.082 mls/hr IVCONT .[id number] PEBBLES; Protocol Naloxone HCl (Naloxone Hcl 0.4 Mg/Ml Vial) 0.2 mg IVPUSH Q2M PRN PRN Reason: Excessive sedation or RR < 8 Physical Exam Vital Signs: Vital Signs: Last Vital Signs Temp 90.3 F L 03/03/21 21:48 Pulse 74 03/03/21 21:48 Resp 20 03/03/21 22:43 BP 119/81 03/03/21 21:48 Pulse Ox 79 L 03/03/21 21:48 Body Mass Index 25.0 Results Labs CBC & Chem 7: 03/04/21 11:05 03/04/21 11:05 Labs: Short CBC 03/03/21 03/04/21 Range/Units 22:02 00:54 WBC 0.8 L* 1.5 L (4.8-10.8) X10*3/uL Hgb 7.7 L 7.0 L* (14.0-18.0) g/dl Hct 22.4 L 22.2 L (42.0-52.0) % Plt Count 75 L 50 L D (160-400) X10*3/uL BMP 03/03/21 22:03 Sodium 128 L Potassium 3.7 Chloride 90 L Carbon Dioxide 15 L BUN 21 H D Creatinine 4.14 H* Calcium 6.8 L D Cardiac Enzymes 03/03/21 Range/Units 22:03 Total Creatine Kinase 88 (38-174) U/L Liver Function 03/03/21 Range/Units 22:03 Total Bilirubin 0.4 (0.0-1.0) mg/dL AST 34 (5-37) U/L ALT 34 (0-40) U/L Alkaline Phosphatase 264 H D (39-117) U/L Albumin 1.4 L D (3.5-5.0) g/dL Urine 03/03/21 Range/Units 22:06 Urine Color YELLOW Urine Appearance HAZY Urine pH 6.0 (5.0-8.0) Ur Specific [place] 1.015 (1.005-1.025) Urine Protein TRACE (NEG-TRACE) MG/DL Urine Glucose (UA) NEG (NEG) MG/DL
[2021-03-04 01:38] LABS: Alanine Aminotransferase 29 U/L (0-40); Albumin Level 1.1 g/dL (3.5-5.0); Alkaline Phosphatase 187 U/L (39-117); Anion Gap 24 (12-20); Aspartate Amino Transferase 49 U/L (5-37); Bilirubin Total 0.3 mg/dL (0.0-1.0); Blood Urea Nitrogen 18 mg/dL (9-16); Carbon Dioxide 12 mmol/L (22-29); Chloride 100 mmol/L (96-108); Creatinine Clr Calc Pharmacy 21.1; Estimated Glomerular Filt Rate 19; Glucose Fasting 112 mg/dL (60-99); Potassium 3.4 mmol/L (3.3-5.1); Sodium 133 mmol/L (135-145); Total Protein 3.2 g/dL (6.5-8.0)
[2021-03-04 01:40] LABS: Calcium 5.7 mg/dL (8.4-10.2)
[2021-03-04 01:46] LABS: Procalcitonin 0.84 ng/mL
[2021-03-04 01:47] LABS: Band Neutrophils Percent 19 % (3-5); Basophils Percent Manual 2 % (0-2); Eosinophils Percent Manual 1 % (0-4); Lymphocytes Absolute Manual 0.6 X10*3/uL (1.2-4.9); Lymphocytes Percent Manual 40 % (20-40); Metamyelocytes Percent 2 %; Monocytes Absolute Manual 0.1 X10*3/uL (0.1-1.2); Monocytes Percent Manual 6 % (2-11); Neutrophils Absolute Manual 0.7 X10*3/uL (2.0-8.3); Neutrophils Percent Manual 30 % (45-73); Nucleated Red Blood Cells 2 /100WBC (0-0)
[2021-03-04 01:48] LABS: Burr Cells 1+ (0-2) /OIF; Large Platelet PRESENT; Macrocytosis 1+ (5-14) /OIF; Platelet Estimate DECREASED (NORMAL); Platelet Morphology Comment NOTED; RBC Morphology NOTED; Toxic Vacuolation PRESENT
--- NOTE | 2021-03-04 01:56 | W.PM.CCHP ---
Procedures Date of Service Date of Service: 03/04/21 Central Line Placement Right IJ: Central Line Comments: venous access Consent for Procedure: Emergent-no informed consent obtained Time out performed: Yes Sterile Technique Used: Yes Patient placed on monitor/pulse ox: Yes MD prep: mask, gown and gloves Central line prep: Chlorhexidine scrub Ultrasound used for placement: Yes Central line lumen inserted: triple Post procedure: sutured in place, good blood return, all ports aspirated, flushed, capped and sterile dressing applied Post procedure x-ray: tip of catheter in good position and no pneumothorax seen Patient tolerated procedure: well and no complications Complications: none Intubation Intubation Comments: Dr Bhatt at bedside Consent for Procedure: Emergent-no informed consent obtained Sedative: etomidate Mg given: 10 Paralytic: rocuronium Mg given: 90 Laryngoscope: fiber optic video scope ET tube size: 7.5 Tube placement confirmation: visualized tube passing through cords, equal breath sounds bilaterally, no breath sounds over epigastrium and confirmation by capnometry Patient tolerated procedure: well Intubation complications: none
--- NOTE | 2021-03-04 01:59 | PM.CCHP ---
History of Present Illness Date of Service: 03/04/21 Attending physician on admission: Virgil Bush Chief Complaint: AMS Pt is a 55-year-old male with history of IVDA and ETOH use who was BIBA from home after being found unresponsive by his family for an unknown amount of time, he was noted to be hypoxic, hypotensive, and hypoglycemic.? As per EMS there was limited information able to be obtained from family and they state that patient was given both D10, glucagon, and Narcan.? EMS states patient was noted to become more responsive but only to pain, but they did not note pinpoint pupils on initial evaluation. Pt was given 3L NS, 1U RBC, 1g ceftriaxone, zofran and narcan. Pt was also placed on a Jaskaran Hugger for rewarming. Vital signs upon arrival to the ED were as follows, 90.3F, HR 74, BP 119/81, O2 sat 79% on RA. His status changed quickly and 2 hours after arrival, his vitals were as follows 88.5F, HR 29, BP 59/44, O2 sat couldn't be measured. Pt was vomiting. A decision by ED doc was made to intubate and place TLC as venous access was poor. Just prior to intubation, pt's HR dropped and a pulse was not detected, CPR was started, a total of 2 rounds of CPR and Epi were given and ROSC was achieved however pt remained profoundly bradycardic. Labs were as follows; WBC 0.8, Hg 7.7, Hct 22.4, platelets 75, toxic vacuolation present, [place] cells present, shistocytes present, vbg 7.37, 25/78/15/94/-8.7, Na 128, K 3.7, Cl90, bicarb 15, BUN 21, Cr 4.14, Lactic acid 12.7, Ca 6.8, Mag 1.3, Alk phos 264, albumin 1.4, procalcitonin 0.84. Pt was also + for fentanyl and opoids. The second set of labs drawn post cardiac arrest worsened dramatically, notably vbg 6.9/58/185/12/98/-19.8 EKG showed junctional bradycardia at 42BPM. Patient's head, chest and abdomen were scanned; results as follows 1. CT chest. Bilateral airspace disease and small bilateral pleural effusions. 2. Marked low attenuation of liver parenchyma, fatty change. 3. Calcifications of pancreas due to chronic pancreatitis. No acute inflammation.. 4. Moderate volume of abdominal ascites 5. Mcmanus catheter present. Head CT showed no acute intracranial pathology Pt was given levophed gtt, phenylephrine gtt, epi gtt, propofol gtt, fentanyl gtt, bicarb bolus x2 then a bicarb drip, mag, calcium, albumin, protonix gtt, 1mg atropine. Dr Bush did a bedside echo, pt had 2+MR, EF normal range, no wall motion abnormalities, IVC was 2cm with 30% collapse with inspiration. Pt rachel be brought to the ICU. Several attempts were made by the emergency department staff to reach the patient's healthcare proxy, Salome Worley [phone] or [phone], they were unsuccessful in reaching her. I also left 2 messages overnight with no return phone call. Review of Systems Review of Systems: Yes Unobtainable due to mental status PMFSH Past Medical History Medical History Alcohol abuse TBI (traumatic brain injury) Social History Social History Household Members: Unknown / Unable to assess Unable to assess alcohol history related to: Unable to respond and Unknown Alcohol intake: current Alcohol intake frequency: holidays/special occasions only Patient Tobacco Use Status: Never used Tobacco Use of substances other than those prescribed or required for medical reasons: Unable to respond Advance Directives: No Advance Directives Information Provided: Yes Meds Allergies Allergy/AdvReac Type Severity Reaction Status Date / Time morphine [MORPHINE] AdvReac Unknown ITCHY Verified 02/16/21 05:32 PEPPERS Allergy Unknown HIVES Uncoded 02/16/21 05:32 Active Medications: Current Medications Chlorhexidine Gluconate (Chlorhexidine Gluc Oral Rinse 15 Ml Mouthwash) 15 ml BUCCAL Q8H PEBBLES Fentanyl (Sublimaze/Ns) 1,000 mcg in 100 mls @ 5 mls/hr IVCONT .Q20H PEBBLES; Protocol Last Admin: 03/04/21 00:01 Dose: 50 mcg/hr, 5 mls/hr Documented by: Pantoprazole Sodium 80 mg/ (Sodium Chloride) 100 mls @ 10 mls/hr IV .Q10H PEBBLES Last Admin: 03/04/21 00:20 Dose: 8 mg/hr, 10 mls/hr Documented by: Epinephrine 5 mg/ Dextrose 255 mls @ 0 mls/hr IVCONT .Q0M [facility]; Protocol Last Admin: 03/04/21 00:22 Dose: 0.2 mcg/kg/min, 41.64 mls/hr Documented by: Propofol (Diprivan) 1,000 mg in 100 mls @ 2.041 mls/hr IVCONT .Q24H PEBBLES; Protocol Cisatracurium Besylate 100 mg/ (Sodium Chloride) 50 mls @ 4.082 mls/hr IVCONT .[id number] [facility]; Protocol Last Admin: 03/04/21 00:58 Dose: 2 mcg/kg/min, 4.08 mls/hr Documented by: Naloxone HCl (Naloxone Hcl 0.4 Mg/Ml Vial) 0.2 mg IVPUSH Q2M PRN PRN Reason: Excessive sedation or RR < 8 Physical Exam Vital Signs: Vital Signs: Last Vital Signs Temp 90.3 F L 03/03/21 21:48 Pulse 74 03/03/21 21:48 Resp 20 03/03/21 22:43 BP 119/81 03/03/21 21:48 Pulse Ox 79 L 03/03/21 21:48 Body Mass Index 25.0 Const: General: other (unresponsive) Nutritional Appearance: cachectic Limitations: altered mental status HENMT: Head: Yes normal to inspection Eyes: General: appearance normal, both eyes and all related structures Pupils: Dilated pupils (6) bilaterally Neck: Neck: Yes normal visual inspection, Yes full ROM and Yes trachea midline Resp: Effort & Inspection: normal respiratory effort Auscultation: rhonchi and wheezes Cardio: Jugular venous distension: no JVD Rate: bradycardic Rhythm: regular rhythm Heart sounds: normal S1 and S2 GI: Inspection: Yes normal to inspection Palpation (GI): Soft to palpation and nontender Skin: General skin exam: dry skin Extrem: General: Yes normal to inspection Results Labs CBC and Chem 7: 03/04/21 05:16 03/04/21 05:16 Labs: Laboratory Results - last 24 hr 03/03/21 03/03/21 03/03/21 21:46 22:00 22:02 MCV 96.6 MCH 33.2 H MCHC 34.4 RDW 17.2 H Plt Count 75 L MPV 11.7 Immature Gran % (Auto) Cancelled Neut % (Auto) Cancelled Lymph % (Auto) Cancelled [place] % (Auto) Cancelled Eos % (Auto) Cancelled Baso % (Auto) Cancelled Lymph # (Auto) Cancelled [place] # (Auto) Cancelled Eos # (Auto) Cancelled Baso # (Auto) Cancelled Abs Immat Gran (auto) Cancelled Absolute Neuts (auto) Cancelled Absolute Nucleated RBC 0.000 Nucleated RBC % (auto) 0.0 Neutrophils % (Manual) 47 Band Neutrophils % 6 H Lymphocytes % (Manual) 44 H Monocytes % (Manual) 2 Eosinophils % (Manual) Basophils % (Manual) Metamyelocytes % 1 Abs Neuts (Manual) 0.4 L Lymphocytes # (Manual) 0.4 L Monocytes # (Manual) Nucleated RBCs Toxic Vacuolation PRES Platelet Estimate DECREASED Large Platelets Plt Morphology Comment NORM RBC Morphology NOTED Microcytosis 1+ (5-14) Macrocytosis 1+ (5-14) [place] Cells 3+ ( Schistocytes 1+ (0-2) PT INR VBG pH 7.37 VBG pCO2 25 VBG pO2 78 VBG HCO3 15 L VBG O2 Saturation 94.0 VBG Base Excess -8.7 Anion Gap Estim Creat Clear Calc Estimated GFR POC Glucose 130 H Random Glucose Fasting Glucose Lactic Acid Lactic Acid Fup @ 2Hr Calcium Magnesium Total Bilirubin AST ALT Alkaline Phosphatase Total Creatine Kinase Troponin I High Sens Total Protein Albumin Procalcitonin Urine Color Urine Appearance Urine pH Ur Specific [place] Urine Protein Urine Glucose (UA) Urine Ketones Urine Blood Urine Nitrite Ur Leukocyte Esterase Urine RBC Urine WBC Urine WBC Clumps Ur Squamous Epith Cells Ur Renal Epithelial Cell Urine Bacteria Hyaline Casts Urine Mucus Stool Occult Blood Urine Opiates Screen Urine Fentanyl Screen Ur Barbiturates Screen Ur Phencyclidine Scrn Ur Amphetamines Screen U Benzodiazepines Scrn Urine Cocaine Screen U Marijuana (THC) Screen Ethyl Alcohol COVID-19 (DMITRI) COVID-19 Clin Com Blood Type Antibody Screen Crossmatch 03/03/21 03/03/21 03/03/21 22:02 22:02 22:02 MCV MCH MCHC RDW Plt Count MPV Immature Gran % (Auto) Neut % (Auto) Lymph % (Auto) [place] % (Auto) Eos % (Auto) Baso % (Auto) Lymph # (Auto) [place] # (Auto) Eos # (Auto) Baso # (Auto) Abs Immat Gran (auto) Absolute Neuts (auto) Absolute Nucleated RBC Nucleated RBC % (auto) Neutrophils % (Manual) Band Neutrophils % Lymphocytes % (Manual) Monocytes % (Manual) Eosinophils % (Manual) Basophils % (Manual) Metamyelocytes % Abs Neuts (Manual) Lymphocytes # (Manual) Monocytes # (Manual) Nucleated RBCs Toxic Vacuolation Platelet Estimate Large Platelets Plt Morphology Comment RBC Morphology Microcytosis Macrocytosis [place] Cells Schistocytes PT 30.8 H INR 2.7 H VBG pH VBG pCO2 VBG pO2 VBG HCO3 VBG O2 Saturation VBG Base Excess Anion Gap Estim Creat Clear Calc Estimated GFR POC Glucose Random Glucose Fasting Glucose Lactic Acid Lactic Acid Fup @ 2Hr Calcium Magnesium Total Bilirubin AST ALT Alkaline Phosphatase Total Creatine Kinase Troponin I High Sens 5.8 Total Protein Albumin Procalcitonin Urine Color Urine Appearance Urine pH Ur Specific [place] Urine Protein Urine Glucose (UA) Urine Ketones Urine Blood Urine Nitrite Ur Leukocyte Esterase Urine RBC Urine WBC Urine WBC Clumps Ur Squamous Epith Cells Ur Renal Epithelial Cell Urine Bacteria Hyaline Casts Urine Mucus Stool Occult Blood Urine Opiates Screen Urine Fentanyl Screen Ur Barbiturates Screen Ur Phencyclidine Scrn Ur Amphetamines Screen U Benzodiazepines Scrn Urine Cocaine Screen U Marijuana (THC) Screen Ethyl Alcohol < 10 COVID-19 (DMITRI) COVID-19 Clin Com Blood Type Antibody Screen Crossmatch 03/03/21 03/03/21 03/03/21 22:03 22:05 22:05 MCV MCH MCHC RDW Plt Count MPV Immature Gran % (Auto) Neut % (Auto) Lymph % (Auto) [place] % (Auto) Eos % (Auto) Baso % (Auto) Lymph # (Auto) [place] # (Auto) Eos # (Auto) Baso # (Auto) Abs Immat Gran (auto) Absolute Neuts (auto) Absolute Nucleated RBC Nucleated RBC % (auto) Neutrophils % (Manual) Band Neutrophils % Lymphocytes % (Manual) Monocytes % (Manual) Eosinophils % (Manual) Basophils % (Manual) Metamyelocytes % Abs Neuts (Manual) Lymphocytes # (Manual) Monocytes # (Manual) Nucleated RBCs Toxic Vacuolation Platelet Estimate Large Platelets Plt Morphology Comment RBC Morphology Microcytosis Macrocytosis [place] Cells Schistocytes PT INR VBG pH VBG pCO2 VBG pO2 VBG HCO3 VBG O2 Saturation VBG Base Excess Anion Gap 27 H Estim Creat Clear Calc 17.3 Estimated GFR 15 POC Glucose Random Glucose 144 H Fasting Glucose Lactic Acid 12.7 H* Lactic Acid Fup @ 2Hr Calcium 6.8 L D Magnesium 1.3 L* Total Bilirubin 0.4 AST 34 ALT 34 Alkaline Phosphatase 264 H D Total Creatine Kinase 88 Troponin I High Sens Total Protein 4.3 L Albumin 1.4 L D Procalcitonin Urine Color Urine Appearance Urine pH Ur Specific [place] Urine Protein Urine Glucose (UA) Urine Ketones Urine Blood Urine Nitrite Ur Leukocyte Esterase Urine RBC Urine WBC Urine WBC Clumps Ur Squamous Epith Cells Ur Renal Epithelial Cell Urine Bacteria Hyaline Casts Urine Mucus Stool Occult Blood Urine Opiates Screen Urine Fentanyl Screen Ur Barbiturates Screen Ur Phencyclidine Scrn Ur Amphetamines Screen U Benzodiazepines Scrn Urine Cocaine Screen U Marijuana (THC) Screen Ethyl Alcohol COVID-19 (DMITRI) Negative COVID-19 Clin Com See Note Blood Type Antibody Screen Crossmatch 03/03/21 03/03/21 03/03/21 22:06 22:06 22:12 MCV MCH MCHC RDW Plt Count MPV Immature Gran % (Auto) Neut % (Auto) Lymph % (Auto) [place] % (Auto) Eos % (Auto) Baso % (Auto) Lymph # (Auto) [place] # (Auto) Eos # (Auto) Baso # (Auto) Abs Immat Gran (auto) Absolute Neuts (auto) Absolute Nucleated RBC Nucleated RBC % (auto) Neutrophils % (Manual) Band Neutrophils % Lymphocytes % (Manual) Monocytes % (Manual) Eosinophils % (Manual) Basophils % (Manual) Metamyelocytes % Abs Neuts (Manual) Lymphocytes # (Manual) Monocytes # (Manual) Nucleated RBCs Toxic Vacuolation Platelet Estimate Large Platelets Plt Morphology Comment RBC Morphology Microcytosis Macrocytosis Neo Cells Schistocytes PT INR VBG pH VBG pCO2 VBG pO2 VBG HCO3 VBG O2 Saturation VBG Base Excess Anion Gap Estim Creat Clear Calc Estimated GFR POC Glucose Random Glucose Fasting Glucose Lactic Acid Lactic Acid Fup @ 2Hr Calcium Magnesium Total Bilirubin AST ALT Alkaline Phosphatase Total Creatine Kinase Troponin I High Sens Total Protein Albumin Procalcitonin Urine Color YELLOW Urine Appearance HAZY Urine pH 6.0 Ur Specific [place] 1.015 Urine Protein TRACE Urine Glucose (UA) NEG Urine Ketones 5 Urine Blood 2+ H Urine Nitrite NEG Ur Leukocyte Esterase 3+ H Urine RBC 10-14 H Urine WBC 30-49 H Urine WBC Clumps NOTED Ur Squamous Epith Cells NONE Ur Renal Epithelial Cell TRACE Urine Bacteria 3+ Hyaline Casts 1-4 Urine Mucus TRACE Stool Occult Blood POSITIVE Urine Opiates Screen POSITIVE H Urine Fentanyl Screen POSITIVE H Ur Barbiturates Screen Not Detected Ur Phencyclidine Scrn Not Detected Ur Amphetamines Screen Not Detected U Benzodiazepines Scrn Not Detected Urine Cocaine Screen Not Detected U Marijuana (THC) Screen Not Detected Ethyl Alcohol COVID-19 (DMITRI) COVID-19 Clin Com Blood Type Antibody Screen Crossmatch 03/03/21 03/04/21 03/04/21 23:23 00:11 00:11 MCV MCH MCHC RDW Plt Count MPV Immature Gran % (Auto) Neut % (Auto) Lymph % (Auto) [place] % (Auto) Eos % (Auto) Baso % (Auto) Lymph # (Auto) [place] # (Auto) Eos # (Auto) Baso # (Auto) Abs Immat Gran (auto) Absolute Neuts (auto) Absolute Nucleated RBC Nucleated RBC % (auto) Neutrophils % (Manual) Band Neutrophils % Lymphocytes % (Manual) Monocytes % (Manual) Eosinophils % (Manual) Basophils % (Manual) Metamyelocytes % Abs Neuts (Manual) Lymphocytes # (Manual) Monocytes # (Manual) Nucleated RBCs Toxic Vacuolation Platelet Estimate Large Platelets Plt Morphology Comment RBC Morphology Microcytosis Macrocytosis Neo Cells Schistocytes PT INR VBG pH VBG pCO2 VBG pO2 VBG HCO3 VBG O2 Saturation VBG Base Excess Anion Gap Estim Creat Clear Calc Estimated GFR POC Glucose 106 Random Glucose Fasting Glucose Lactic Acid Lactic Acid Fup @ 2Hr 13.0 H* Calcium Magnesium Total Bilirubin AST ALT Alkaline Phosphatase Total Creatine Kinase Troponin I High Sens Total Protein Albumin Procalcitonin Urine Color Urine Appearance Urine pH Ur Specific [place] Urine Protein Urine Glucose (UA) Urine Ketones Urine Blood Urine Nitrite Ur Leukocyte Esterase Urine RBC Urine WBC Urine WBC Clumps Ur Squamous Epith Cells Ur Renal Epithelial Cell Urine Bacteria Hyaline Casts Urine Mucus Stool Occult Blood Urine Opiates Screen Urine Fentanyl Screen Ur Barbiturates Screen Ur Phencyclidine Scrn Ur Amphetamines Screen U Benzodiazepines Scrn Urine Cocaine Screen U Marijuana (THC) Screen Ethyl Alcohol COVID-19 (DMITRI) COVID-19 Clin Com Blood Type A Negative Antibody Screen NEGATIVE Crossmatch See Detail 03/04/21 03/04/21 03/04/21 00:54 00:54 00:54 MCV 100.5 H MCH 31.7 MCHC 31.5 RDW 16.9 H Plt Count 50 L D MPV 11.0 Immature Gran % (Auto) Cancelled Neut % (Auto) Cancelled Lymph % (Auto) Cancelled [place] % (Auto) Cancelled Eos % (Auto) Cancelled Baso % (Auto) Cancelled Lymph # (Auto) Cancelled [place] # (Auto) Cancelled Eos # (Auto) Cancelled Baso # (Auto) Cancelled Abs Immat Gran (auto) Cancelled Absolute Neuts (auto) Cancelled Absolute Nucleated RBC 0.000 Nucleated RBC % (auto) 0.0 Neutrophils % (Manual) 30 L Band Neutrophils % 19 H Lymphocytes % (Manual) 40 Monocytes % (Manual) 6 Eosinophils % (Manual) 1 Basophils % (Manual) 2 Metamyelocytes % 2 Abs Neuts (Manual) 0.7 L Lymphocytes # (Manual) 0.6 L Monocytes # (Manual) 0.1 Nucleated RBCs 2 H Toxic Vacuolation PRESENT Platelet Estimate DECREASED Large Platelets PRESENT Plt Morphology Comment NOTED RBC Morphology NOTED Microcytosis Macrocytosis 1+ (5-14) [place] Cells 1+ (0-2) Schistocytes PT INR VBG pH VBG pCO2 VBG pO2 VBG HCO3 VBG O2 Saturation VBG Base Excess Anion Gap 24 H Estim Creat Clear Calc 21.1 Estimated GFR 19 POC Glucose Random Glucose Fasting Glucose 112 H Lactic Acid Lactic Acid Fup @ 2Hr Calcium 5.7 L* D Magnesium Total Bilirubin 0.3 AST 49 H D ALT 29 Alkaline Phosphatase 187 H D Total Creatine Kinase Troponin I High Sens 4.5 Total Protein 3.2 L D Albumin 1.1 L D Procalcitonin Urine Color Urine Appearance Urine pH Ur Specific [place] Urine Protein Urine Glucose (UA) Urine Ketones Urine Blood Urine Nitrite Ur Leukocyte Esterase Urine RBC Urine WBC Urine WBC Clumps Ur Squamous Epith Cells Ur Renal Epithelial Cell Urine Bacteria Hyaline Casts Urine Mucus Stool Occult Blood Urine Opiates Screen Urine Fentanyl Screen Ur Barbiturates Screen Ur Phencyclidine Scrn Ur Amphetamines Screen U Benzodiazepines Scrn Urine Cocaine Screen U Marijuana (THC) Screen Ethyl Alcohol COVID-19 (DMITRI) COVID-19 Clin Com Blood Type Antibody Screen Crossmatch 03/04/21 03/04/21 00:54 00:56 MCV MCH MCHC RDW Plt Count MPV Immature Gran % (Auto) Neut % (Auto) Lymph % (Auto) [place] % (Auto) Eos % (Auto) Baso % (Auto) Lymph # (Auto) [place] # (Auto) Eos # (Auto) Baso # (Auto) Abs Immat Gran (auto) Absolute Neuts (auto) Absolute Nucleated RBC Nucleated RBC % (auto) Neutrophils % (Manual) Band Neutrophils % Lymphocytes % (Manual) Monocytes % (Manual) Eosinophils % (Manual) Basophils % (Manual) Metamyelocytes % Abs Neuts (Manual) Lymphocytes # (Manual) Monocytes # (Manual) Nucleated RBCs Toxic Vacuolation Platelet Estimate Large Platelets Plt Morphology Comment RBC Morphology Microcytosis Macrocytosis [place] Cells Schistocytes PT INR VBG pH 6.90 L* VBG pCO2 58 VBG pO2 185 VBG HCO3 12 L VBG O2 Saturation 98.0 VBG Base Excess -19.8 Anion Gap Estim Creat Clear Calc Estimated GFR POC Glucose Random Glucose Fasting Glucose Lactic Acid Lactic Acid Fup @ 2Hr Calcium Magnesium Total Bilirubin AST ALT Alkaline Phosphatase Total Creatine Kinase Troponin I High Sens Total Protein Albumin Procalcitonin 0.84 Urine Color Urine Appearance Urine pH Ur Specific [place] Urine Protein Urine Glucose (UA) Urine Ketones Urine Blood Urine Nitrite Ur Leukocyte Esterase Urine RBC Urine WBC Urine WBC Clumps Ur Squamous Epith Cells Ur Renal Epithelial Cell Urine Bacteria Hyaline Casts Urine Mucus Stool Occult Blood Urine Opiates Screen Urine Fentanyl Screen Ur Barbiturates Screen Ur Phencyclidine Scrn Ur Amphetamines Screen U Benzodiazepines Scrn Urine Cocaine Screen U Marijuana (THC) Screen Ethyl Alcohol COVID-19 (DMITRI) COVID-19 Clin Com Blood Type Antibody Screen Crossmatch Imaging Radiologist's Impressions: Impressions Chest X-Ray 03/03/21 00:03 IMPRESSION: ET tube NG tube and right IJ line all appear to be in good position. Worsening pulmonary disease as described above Head CT 03/03/21 21:50 IMPRESSION: No acute intracranial pathology. Chest X-Ray 03/03/21 21:59 IMPRESSION: Abnormal chest radiograph showing evidence of bilateral perihilar and right lower lobar patchy airspace disease and dense airspace consolidation at left lower lobe in the retrocardiac region associated with layering small left-sided pleural effusion. Abdomen/Pelvis CT 03/03/21 22:01 IMPRESSION: 1. CT chest. Bilateral airspace disease and small bilateral pleural effusions. 2. Marked low attenuation of liver parenchyma, fatty change. 3. Calcifications of pancreas due to chronic pancreatitis. No acute inflammation.. 4. Moderate volume of abdominal ascites 5. Mcmanus catheter present. Chest CT 03/03/21 22:16 IMPRESSION: 1. CT chest. Bilateral airspace disease and small bilateral pleural effusions. 2. Marked low attenuation of liver parenchyma, fatty change. 3. Calcifications of pancreas due to chronic pancreatitis. No acute inflammation.. 4. Moderate volume of abdominal ascites 5. Mcmanus catheter present. Assessment and Plan (1) Altered mental status: Status: Acute pt currently intubated and sedated (2) Septic shock: Status: Acute intubated, sedated, on pressors, volume resuscitated, abx given, continue to monitor lactic acid, pH and other labs, continue Jaskaran Hugger for rewarming (3) Acute respiratory failure: Status: Acute intubated and sedated (4) Pneumonia: Status: Acute 1g ceftriaxone given in ED. Will give azithromycin and ceftriaxone for CAP (5) Acute renal failure: Status: Acute avoid nephrotoxic drugs and monitor renal indices (6) Cardiac arrest with successful resuscitation: Status: Acute monitor above discussed with and agreed to by Dr Bush
[2021-03-04] MEDS: propofoL 1,000 MG/100 ML VIAL 2.04 MG IVCONT (02:03)
[2021-03-04 02:08] LABS: Hemoglobin 8.3 g/dl (14.0-18.0); Mean Corpuscular HGB Conc 31.9 g/dl (31.0-36.0); Mean Corpuscular Hemoglobin 31.8 pg (27.0-33.0); Mean Corpuscular Volume 99.6 fL (80.0-98.0); Mean Platelet Volume 11.3 fL (9.4-12.4); NRBC Pct Auto 1.6 /100WBC (0.0-0.2); Red Blood Count 2.61 X10*6/uL (4.60-5.80); White Blood Count 1.3 X10*3/uL (4.8-10.8)
[2021-03-04 02:09] LABS: Platelet Count 68 X10*3/uL (160-400)
[2021-03-04 02:10] LABS: VBG Base Excess -18.2 mmol/L; VBG HCO3 13 mmol/L (22-26); VBG pCO2 59 mmHg; VBG pH 6.95 (7.32-7.43); VBG pO2 112 mmHg
[2021-03-04] MEDS: Albumin Human 25 % 50 ML 200 ML IV (02:13)
[2021-03-04] MEDS: Calcium Gluconate/NaCl,Iso-Osm 2 GM/100 ML PLAST..BAG IV (02:29)
[2021-03-04 02:32] LABS: Troponin-I High Sensitivity 4.4 ng/L (<3.5-35.0)
[2021-03-04] MEDS: Chlorhexidine Gluc Oral Rinse 15 ML MOUTHWASH BUCCAL ×2 (02:33→11:21)
--- NOTE | 2021-03-04 02:33 | PC.NURSE ---
Pt moved from ED 12 to ED 4 per MD orders in order to intubate patient. ORLIN Yin assumed partial care of patient at 232 when patient was moved to the new section. CPR started at 2319, no pulse noted. 1mg epi in at 2319. Bicarb in at 2321. First pulse check at 2323, another round of epi given at that time. Pulse felt, CPR stopped. 2326 Fentanyl 100mcg IV push given. Pt intubated at 2326 with OG tube placed at the same time, 700 ml output of dark brown drainage from OG tube. Ultrasound of heart performed at 2327. Vent settings VTE 400, O2 100%, PEEP 8, tube 7 and 1/2 @23 at the lip. Levophed started @ 2339. Titrated per orders to facilitate BP. MD Bhatt gave IV push epi 1 in 10 @ 2346. Limited IV access, IO placed at right knee @ 2349. 2353 Phenylephrine drip started. 2354 central line placed by ICU SAMANTHA Fontenot, triple lumen central line in the right neck. ET tube, OT tube, and central confirmed by x-ray. 0001 Fentanyl drip started, patient moving and biting ET tube. 0020 1 unit PRBC started, vitals at 1220 documented. 0024 Epi drip started. 0042 Protonix drip started. ICU MD assessed patient at bedside, performed another ultrasound. 0058 Nimbex drip started. 0111 Phenylephrine drip stopped per ICU MD orders. Mcmanus catheter has 75ml output. Pt transferred to ICU with ORLIN Huynh, ORLIN Das, ORLIN Hackett, SAMANTHA Fontenot, respiratory, and RN supervisor costuming. Report given at bedside by ORLIN Das. Team members in code include MD Bhatt, ORLIN Yin, ORLIN Das, RN Daniel, RN Grabiel, RN Martine, Respiratory therapist, and SAMANTHA Fontenot.
[2021-03-04] MEDS: Sodium Bicarbonate 8.4% 50 MEQ/50 ML SYRINGE 150 MEQ IV (02:37)
[2021-03-04 02:40] LABS: Alanine Aminotransferase 34 U/L (0-40); Albumin Level 1.2 g/dL (3.5-5.0); Alkaline Phosphatase 218 U/L (39-117); Anion Gap 26 (12-20); Aspartate Amino Transferase 71 U/L (5-37); Bilirubin Total 0.5 mg/dL (0.0-1.0); Blood Urea Nitrogen 18 mg/dL (9-16); Calcium 5.8 mg/dL (8.4-10.2); Carbon Dioxide 12 mmol/L (22-29); Chloride 99 mmol/L (96-108); Creatinine Clr Calc Pharmacy 20.5; Estimated Glomerular Filt Rate 18; Glucose Random 100 mg/dL (60-115); Magnesium 1.7 mg/dL (1.6-2.6); Phosphorus 7.2 mg/dL (2.7-4.5); Potassium 3.2 mmol/L (3.3-5.1); Sodium 134 mmol/L (135-145); Total Protein 3.7 g/dL (6.5-8.0)
[2021-03-04 02:42] LABS: Band Neutrophils Percent 18 % (3-5); Basophils Percent Manual 2 % (0-2); Lymphocytes Absolute Manual 0.7 X10*3/uL (1.2-4.9); Lymphocytes Percent Manual 56 % (20-40); Metamyelocytes Absolute 0.1 X10*3/uL; Metamyelocytes Percent 4 %; Monocytes Absolute Manual 0.1 X10*3/uL (0.1-1.2); Monocytes Percent Manual 10 % (2-11); Neutrophils Absolute Manual 0.4 X10*3/uL (2.0-8.3); Neutrophils Percent Manual 10 % (45-73)
[2021-03-04 02:43] LABS: Burr Cells 1+ (0-2) /OIF; Large Platelet PRESENT; Macrocytosis 1+ (5-14) /OIF; Platelet Estimate DECREASED (NORMAL); Platelet Morphology Comment NOTED; RBC Morphology NOTED; Toxic Vacuolation PRESENT
[2021-03-04 02:48] LABS: Venous Blood Gas Refer to POC result
[2021-03-04 02:49] LABS: Venous Blood Gas Refer to POC result
[2021-03-04 02:50] LABS: Reflex Lactate? 2 Y
--- NOTE | 2021-03-04 02:53 | PC.NURSE ---
1 unit PRBC completed fully.
[2021-03-04] MEDS: Sodium Bicarbonate 8.4% 150 MEQ in Dextrose 5 % 850 ML 100 MEQ IV (03:28)
[2021-03-04] MEDS: EPINEPHrine 5 MG in Dextrose 5 % 250 ML 83.28 MG IVCONT (03:28)
[2021-03-04] MEDS: Azithromycin 500 MG in 0.9 % Sodium Chloride 250 ML 125 MG IV (03:29)
[2021-03-04 03:30] LABS: TSH reflex Free T4 4.29 uIU/mL (0.32-4.0)
[2021-03-04] MEDS: cefTRIAXone sodium 1 GM in 0.9 % Sodium Chloride 50 ML IV (03:30)
--- NOTE | 2021-03-04 03:31 | ECG_ITS ---
Test Reason : CHANGE Blood Pressure : / mmHG Vent. Rate : 092 BPM Atrial Rate : 092 BPM P-R Int : 218 ms QRS Dur : 102 ms QT Int : 352 ms P-R-T Axes : 047 016 166 degrees QTc Int : 435 ms Sinus rhythm with 1st degree A-V block Low voltage QRS T-wave inversion in Lateral leads Intra-ventricular conduction delay Abnormal ECG When compared with ECG of 04-MAR-2021 00:32, Sinus rhythm has replaced Junctional rhythm Vent. rate has increased BY 50 BPM Questionable change in QRS duration Referred By: Corie Godwin Electronically Signed By:JUAN M LYN MD
[2021-03-04] MEDS: Potassium Chloride/H20 40 MEQ/100 ML PIGGYBACK 100 MEQ IV (03:51)
[2021-03-04 04:06] LABS: Free T4 (Free Thyroxine) 0.54 ng/dL (0.71-1.85)
--- NOTE | 2021-03-04 04:20 | PC.NURSE ---
Patient admitted via ED approx 0130. Temp 87 degrees- on bare hugger. Unarousable, no cough, no gag. Synchronous with vent, no overbreathing. Nimbex turned off. pH 6.95- RR increased, amp ivp bicarb, bicarb gtt started. Initially SR 80's-90's with 1st degree. Approx 0400 started bradying down to 40's. Epi turned up to 0.7 mcg/kg/min and amp of bicarb ivp. Patient on backboard with pacer pads and zoll. No uop. Small bm x1. OGT to low intermittent suction, draining bloody aspirate. Skin intact. PA at bedside, aware of all critical lab values and findings.
[2021-03-04 05:27] LABS: VBG Base Excess -15.1 mmol/L; VBG HCO3 15 mmol/L (22-26); VBG pCO2 58 mmHg; VBG pH 7.02 (7.32-7.43); VBG pO2 85 mmHg
[2021-03-04 05:44] LABS: Hematocrit 24.6 % (42.0-52.0); Mean Corpuscular HGB Conc 32.5 g/dl (31.0-36.0); Mean Corpuscular Volume 98.4 fL (80.0-98.0); Mean Platelet Volume 11.5 fL (9.4-12.4); NRBC Pct Auto 3.2 /100WBC (0.0-0.2); Red Cell Distribution Width 17.4 % (11.0-16.0); WBC ABN SCTR FOR CBC 1
[2021-03-04 05:45] LABS: Platelet Count 76 X10*3/uL (160-400)
[2021-03-04] MEDS: EPINEPHrine 5 MG in Dextrose 5 % 250 ML 145.74 MG IVCONT ×4 (05:48→10:59)
[2021-03-04] MEDS: propofoL 1,000 MG/100 ML VIAL 4.08 MG IVCONT (05:50)
[2021-03-04 06:03] LABS: Ammonia 54 umol/L (13-55)
[2021-03-04 06:05] LABS: Band Neutrophils Percent 12 % (3-5); Lymphocytes Absolute Manual 0.3 X10*3/uL (1.2-4.9); Lymphocytes Percent Manual 28 % (20-40); Neutrophils Absolute Manual 0.7 X10*3/uL (2.0-8.3); Neutrophils Percent Manual 60 % (45-73); Nucleated Red Blood Cells 1 /100WBC (0-0)
[2021-03-04 06:06] LABS: Burr Cells 2+ (3-5) /OIF; Large Platelet PRESENT; Macrocytosis 1+ (5-14) /OIF; Platelet Estimate DECREASED (NORMAL); Platelet Morphology Comment NOTED; RBC Morphology NOTED; Toxic Vacuolation PRESENT
[2021-03-04 06:09] LABS: Lactic Acid 18.1 mmol/L (0.5-2.0)
[2021-03-04 06:17] LABS: Alanine Aminotransferase 35 U/L (0-40); Albumin Level 1.4 g/dL (3.5-5.0); Alkaline Phosphatase 206 U/L (39-117); Anion Gap 29 (12-20); Aspartate Amino Transferase 76 U/L (5-37); Bilirubin Total 0.7 mg/dL (0.0-1.0); Blood Urea Nitrogen 18 mg/dL (9-16); Calcium 6.5 mg/dL (8.4-10.2); Carbon Dioxide 14 mmol/L (22-29); Chloride 96 mmol/L (96-108); Estimated Glomerular Filt Rate 18; Glucose Random 141 mg/dL (60-115); Magnesium 1.5 mg/dL (1.6-2.6); Phosphorus 7.4 mg/dL (2.7-4.5); Potassium 4.1 mmol/L (3.3-5.1); Sodium 135 mmol/L (135-145); Total Protein 3.9 g/dL (6.5-8.0)
[2021-03-04] MEDS: Doxycycline Hyclate 100 MG in 0.9 % Sodium Chloride 250 ML 166.67 MG IV (06:50)
[2021-03-04 07:16] LABS: Venous Blood Gas Refer to POC result
[2021-03-04 07:30] LABS: Reflex Lactate? Lactic Acid Added
[2021-03-04] MEDS: Sodium Bicarbonate 8.4% 50 MEQ/50 ML SYRINGE 100 MEQ IV (07:58)
[2021-03-04 08:54] LABS: ~Lactic Acid-LAB USE ONLY 16.2 mmol/L (0.5-2.0)
--- NOTE | 2021-03-04 09:39 | P.CDIC_ITS ---
CDI Concurrent Query Documentation Clarification: PHYSICIAN'S DOCUMENTATION REQUEST Date of Query: 03/04/21 0939 Patient Name: Moreno Worley Admit Date: 03/04/21 Dear Doctor, A review of the medical record indicates additional documentation may be needed. Please review below and update the documentation accordingly. Risk Factors/Clinical Indicators/Treatments Per ED note, altered mental status Unresponsive EMS states that EN route patient was noted to become more responsive but only to pain Based on the above, could you clarify in the Progress Notes the appropriate diagnosis, if significant, that supports the above abnormalities and additional evaluation, monitoring, and/or treatment rendered: * Based on the above clinical indicators, please provide a diagnosis associated with the evaluation, monitoring, and treatment of the patient's Altered Mental Status * Other (please specify) * Unable to determine Use of terms such as suspected, likely, concern for, or probable (associated with a specific diagnosis that is being evaluated, monitored, or treated as if it exists) are acceptable and can be coded in the inpatient setting, when documented at the time of discharge. Thank you, Concepción Rand RN Extension: [phone] Please use your independent medical judgment in providing your response. THIS QUERY IS PART OF THE PERMANENT MEDICAL RECORD Provider Response: Septic Encephalopathy
[2021-03-04 10:08] LABS: Reflex Lactate? 2 N
--- NOTE | 2021-03-04 10:32 | W.PM.CCHP ---
Procedures Date of Service Date of Service: 03/04/21 Arterial Line Arterial Line Comments: PROCEDURE:? Insertion right femoral arterial line. Indications:? Septic shock and acute respiratory failure. Anesthesia:? Local and propofol/fentanyl sedation. The right femoral artery was identified by ultrasound.? The groin was then prepped and draped in full sterile fashion.? Local anesthesia was infiltrated.? The artery was cannulated under US guidance with the 20g thin wall and the wire advanced without incident.? The 20g x 12cm cannula was advanced over the wire via Seldinger technique and hooked up to pressure, with a good waveform.? The catheter was then sutured in place with 3-0 silk x 3.? A biopatch and dry sterile dressing were applied. The patient tolerated the procedure well with no complications. Consent: Elective - informed consent obtained
--- NOTE | 2021-03-04 10:33 | PM.CCPN ---
Subjective Subjective Date of Service: 03/04/21 Interval History: Mr. Worley was admitted to the ICU early this morning with septic shock. See the H&P, and see my consult note of earlier this morning. Further information was obtained from the patient's mother, Salome, who is the patient's healthcare proxy.? (Home telephone [phone].? Cell phone number [phone].)? The patient does not live with her, he lives with his girlfriend, Maria Reynolds (cell phone number [phone]) and a male friend, Armando Prieto ([phone]). 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 The patient also is a drug abuser of many diff kinds of drugs, and also abuses alcohol.? The mother told me that the patient was admitted to [facility] for over a month this past August.? He was bed ridden there.? He had C diff.? From there he went to rehab at [facility].? Salome expressed the opinion that the patient's girlfriend was bring him heroin while he was there. In the ED, the patient was volume resuscitated, given abx, put on epi and levophed.? He was warmed from a temp of 88?.? With the patient on an epinephrine drip, echocardiogram showed normal left and right ventricular size and function, and adequate intravascular volume.? He was started on bicarbonate because of refractory metabolic acidosis and then admitted to the ICU. Overnight in the ICU, he was given multiple amps of bicarbonate, and the epinephrine drip was increased to 0.7 mcg.? The Levophed was tapered off. ?He continued to be warmed. On exam this morning, he is overbreathing the ventilator.? On epinephrine 0.7 mcg, he was mildly hypotensive.? Heart rate was 70s to 80s, in atrial fibrillation.? Temperature was up to 96 degrees.? I spoke with the patient's mother on the phone at some length, and asked her to come in. ?The patient's blood pressure blood pressure dropped into the 70s.? I placed a femoral arterial line.? I re-echo the patient.? Echo findings were almost the same as this morning.? Ejection fraction was at least 50%, but contractility did not look quite as vigorous as early this morning.? Right heart and IVC were the same, with exact same IVC measurement. Intravenous thyroid was ordered.? Because of the blood smear, the patient was also given a dose of doxycycline in case of a rickettsial disease. LABORATORY DATA:? White count this morning still only 1.1.? Hemoglobin 7.4, after transfusion of 1 unit last night.? Platelet count steady at 72,000.? On the bicarb drip, chemistries show sodium of 135, BUN/creatinine 18/3.7, bicarb 16, potassium 3.7, glucose 157, lactic acid 18.? Venous blood gas this morning, on the bicarb drip, showed 7.02/58/-15.? Tox screen last night was positive for opiates and fentanyl.? TSH and free T4 were noted. The patient's mother and sister came in and we spoke at length in the waiting room.? We talked about his past medical history and his lack of self-care and has destructive behaviors.? I explained to them the nature of refractory septic shock and the very poor prognosis.? I discussed with them that at this point we still did not have any source for the sepsis.? We discussed the possibility that it might be C diff although that was unlikely without significant CT findings. ?They did not want any additional heroic interventions, they declined transfer to [facility], and they declined any kind of surgery. I had the patient's chest and abdominal CT scan uploaded to the [facility] Radiology System.? I called the [facility] transfer line and spoke with their general surgeon on-call.? The specific question I asked to was whether he thought it was possible to have severe refractory septic shock from C diff colitis without having significant findings on the abdominal CT scan.? He did not think so.? He offered the possibility of a transfer to their ICU, but I told him that the family had declined that. 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 They requested withdrawal of critical care support.? I had previously expressed to them that there was no chance of survival.? I told the patient's mother that I agreed with her decision. The patient was made comfortable with fentanyl, changed over to pressure support ventilation with a good spontaneous rate, and then extubated to room air.? The patient a short time later.? Time of was 12:05. IMPRESSION: 1. Underlying severe protein calorie malnutrition. 2. IV drug abuse. 3. Refractory septic shock, of undetermined etiology. 4. Acute respiratory failure. 5. Left lower lobe pneumonia. ?Probably minor. ?I doubt this was the cause of the patient's septic shock. 6. DEEPTHI.? Volume replete. 7. Severe metabolic acidosis. 8. Severe metabolic encephalopathy. 9. Anemia 10. GI bleed (probably minor) 11. H/o CDiff colitis 12. H/o DM 13. H/o sz, 2? TBI. Critical care time (excluding procedures): 2.5+ hrs. I spoke with the medical assistant's office.? They excepted the case (because of the TBI and the positive tox screen).? yarn skeins examiner accepting the case:? Jerri Harris.? Case# [id number]. Critical Care Time (minutes): 150 Physical Exam Vital Signs: Vital Signs: Last Vital Signs Temp 93.0 F L 03/04/21 10:00 Pulse 85 03/04/21 10:00 Resp 25 H 03/04/21 10:00 BP 102/55 L 03/04/21 10:00 Pulse Ox 90 L 03/04/21 10:00 Body Mass Index 26.2 Objective Data Labs CBC & Chem 7: 03/04/21 11:05 03/04/21 11:05 Labs: Laboratory Results - last 24 hr 03/03/21 03/03/21 03/03/21 21:46 22:00 22:02 WBC 0.8 L* RBC 2.32 L Hgb 7.7 L Hct 22.4 L MCV 96.6 MCH 33.2 H MCHC 34.4 RDW 17.2 H Plt Count 75 L MPV 11.7 Immature Gran % (Auto) Cancelled Neut % (Auto) Cancelled Lymph % (Auto) Cancelled [place] % (Auto) Cancelled Eos % (Auto) Cancelled Baso % (Auto) Cancelled Lymph # (Auto) Cancelled [place] # (Auto) Cancelled Eos # (Auto) Cancelled Baso # (Auto) Cancelled Abs Immat Gran (auto) Cancelled Absolute Neuts (auto) Cancelled Absolute Nucleated RBC 0.000 Nucleated RBC % (auto) 0.0 Neutrophils % (Manual) 47 Band Neutrophils % 6 H Lymphocytes % (Manual) 44 H Monocytes % (Manual) 2 Eosinophils % (Manual) Basophils % (Manual) Metamyelocytes % 1 Abs Neuts (Manual) 0.4 L Lymphocytes # (Manual) 0.4 L Monocytes # (Manual) Metamyelocytes # Nucleated RBCs Toxic Vacuolation PRES Platelet Estimate DECREASED Large Platelets Plt Morphology Comment NORM RBC Morphology NOTED Microcytosis 1+ (5-14) Macrocytosis 1+ (5-14) Neo Cells 3+ ( Schistocytes 1+ (0-2) Smear Path Review Cancelled PT INR VBG pH 7.37 VBG pCO2 25 VBG pO2 78 VBG HCO3 15 L VBG O2 Saturation 94.0 VBG Base Excess -8.7 Sodium Potassium Chloride Carbon Dioxide Anion Gap BUN Creatinine Estim Creat Clear Calc Estimated GFR POC Glucose 130 H Random Glucose Fasting Glucose Lactic Acid Lactic Acid Fup @ 2Hr Lactic Acid Fup @ 4Hr Calcium Phosphorus Magnesium Total Bilirubin AST ALT Alkaline Phosphatase Ammonia Total Creatine Kinase Troponin I High Sens Total Protein Albumin Procalcitonin TSH Free T4 Urine Color Urine Appearance Urine pH Ur Specific [place] Urine Protein Urine Glucose (UA) Urine Ketones Urine Blood Urine Nitrite Ur Leukocyte Esterase Urine RBC Urine WBC Urine WBC Clumps Ur Squamous Epith Cells Ur Renal Epithelial Cell Urine Bacteria Hyaline Casts Urine Mucus Stool Occult Blood Urine Opiates Screen Urine Fentanyl Screen Ur Barbiturates Screen Ur Phencyclidine Scrn Ur Amphetamines Screen U Benzodiazepines Scrn Urine Cocaine Screen U Marijuana (THC) Screen Ethyl Alcohol COVID-19 (DMITRI) COVID-19 Clin Com Blood Type Antibody Screen Crossmatch 03/03/21 03/03/21 03/03/21 22:02 22:02 22:02 WBC RBC Hgb Hct MCV MCH MCHC RDW Plt Count MPV Immature Gran % (Auto) Neut % (Auto) Lymph % (Auto) [place] % (Auto) Eos % (Auto) Baso % (Auto) Lymph # (Auto) [place] # (Auto) Eos # (Auto) Baso # (Auto) Abs Immat Gran (auto) Absolute Neuts (auto) Absolute Nucleated RBC Nucleated RBC % (auto) Neutrophils % (Manual) Band Neutrophils % Lymphocytes % (Manual) Monocytes % (Manual) Eosinophils % (Manual) Basophils % (Manual) Metamyelocytes % Abs Neuts (Manual) Lymphocytes # (Manual) Monocytes # (Manual) Metamyelocytes # Nucleated RBCs Toxic Vacuolation Platelet Estimate Large Platelets Plt Morphology Comment RBC Morphology Microcytosis Macrocytosis [place] Cells Schistocytes Smear Path Review PT 30.8 H INR 2.7 H VBG pH VBG pCO2 VBG pO2 VBG HCO3 VBG O2 Saturation VBG Base Excess Sodium Potassium Chloride Carbon Dioxide Anion Gap BUN Creatinine Estim Creat Clear Calc Estimated GFR POC Glucose Random Glucose Fasting Glucose Lactic Acid Lactic Acid Fup @ 2Hr Lactic Acid Fup @ 4Hr Calcium Phosphorus Magnesium Total Bilirubin AST ALT Alkaline Phosphatase Ammonia Total Creatine Kinase Troponin I High Sens 5.8 Total Protein Albumin Procalcitonin TSH Free T4 Urine Color Urine Appearance Urine pH Ur Specific [place] Urine Protein Urine Glucose (UA) Urine Ketones Urine Blood Urine Nitrite Ur Leukocyte Esterase Urine RBC Urine WBC Urine WBC Clumps Ur Squamous Epith Cells Ur Renal Epithelial Cell Urine Bacteria Hyaline Casts Urine Mucus Stool Occult Blood Urine Opiates Screen Urine Fentanyl Screen Ur Barbiturates Screen Ur Phencyclidine Scrn Ur Amphetamines Screen U Benzodiazepines Scrn Urine Cocaine Screen U Marijuana (THC) Screen Ethyl Alcohol < 10 COVID-19 (DMITRI) COVID-19 Clin Com Blood Type Antibody Screen Crossmatch 03/03/21 03/03/21 03/03/21 22:03 22:05 22:05 WBC RBC Hgb Hct MCV MCH MCHC RDW Plt Count MPV Immature Gran % (Auto) Neut % (Auto) Lymph % (Auto) [place] % (Auto) Eos % (Auto) Baso % (Auto) Lymph # (Auto) [place] # (Auto) Eos # (Auto) Baso # (Auto) Abs Immat Gran (auto) Absolute Neuts (auto) Absolute Nucleated RBC Nucleated RBC % (auto) Neutrophils % (Manual) Band Neutrophils % Lymphocytes % (Manual) Monocytes % (Manual) Eosinophils % (Manual) Basophils % (Manual) Metamyelocytes % Abs Neuts (Manual) Lymphocytes # (Manual) Monocytes # (Manual) Metamyelocytes # Nucleated RBCs Toxic Vacuolation Platelet Estimate Large Platelets Plt Morphology Comment RBC Morphology Microcytosis Macrocytosis Neo Cells Schistocytes Smear Path Review PT INR VBG pH VBG pCO2 VBG pO2 VBG HCO3 VBG O2 Saturation VBG Base Excess Sodium 128 L Potassium 3.7 Chloride 90 L Carbon Dioxide 15 L Anion Gap 27 H BUN 21 H D Creatinine 4.14 H* Estim Creat Clear Calc 17.3 Estimated GFR 15 POC Glucose Random Glucose 144 H Fasting Glucose Lactic Acid 12.7 H* Lactic Acid Fup @ 2Hr Lactic Acid Fup @ 4Hr Calcium 6.8 L D Phosphorus Magnesium 1.3 L* Total Bilirubin 0.4 AST 34 ALT 34 Alkaline Phosphatase 264 H D Ammonia Total Creatine Kinase 88 Troponin I High Sens Total Protein 4.3 L Albumin 1.4 L D Procalcitonin TSH Free T4 Urine Color Urine Appearance Urine pH Ur Specific [place] Urine Protein Urine Glucose (UA) Urine Ketones Urine Blood Urine Nitrite Ur Leukocyte Esterase Urine RBC Urine WBC Urine WBC Clumps Ur Squamous Epith Cells Ur Renal Epithelial Cell Urine Bacteria Hyaline Casts Urine Mucus Stool Occult Blood Urine Opiates Screen Urine Fentanyl Screen Ur Barbiturates Screen Ur Phencyclidine Scrn Ur Amphetamines Screen U Benzodiazepines Scrn Urine Cocaine Screen U Marijuana (THC) Screen Ethyl Alcohol COVID-19 (DMITRI) Negative COVID-19 Clin Com See Note Blood Type Antibody Screen Crossmatch 03/03/21 03/03/21 03/03/21 22:06 22:06 22:12 WBC RBC Hgb Hct MCV MCH MCHC RDW Plt Count MPV Immature Gran % (Auto) Neut % (Auto) Lymph % (Auto) [place] % (Auto) Eos % (Auto) Baso % (Auto) Lymph # (Auto) [place] # (Auto) Eos # (Auto) Baso # (Auto) Abs Immat Gran (auto) Absolute Neuts (auto) Absolute Nucleated RBC Nucleated RBC % (auto) Neutrophils % (Manual) Band Neutrophils % Lymphocytes % (Manual) Monocytes % (Manual) Eosinophils % (Manual) Basophils % (Manual) Metamyelocytes % Abs Neuts (Manual) Lymphocytes # (Manual) Monocytes # (Manual) Metamyelocytes # Nucleated RBCs Toxic Vacuolation Platelet Estimate Large Platelets Plt Morphology Comment RBC Morphology Microcytosis Macrocytosis Neo Cells Schistocytes Smear Path Review PT INR VBG pH VBG pCO2 VBG pO2 VBG HCO3 VBG O2 Saturation VBG Base Excess Sodium Potassium Chloride Carbon Dioxide Anion Gap BUN Creatinine Estim Creat Clear Calc Estimated GFR POC Glucose Random Glucose Fasting Glucose Lactic Acid Lactic Acid Fup @ 2Hr Lactic Acid Fup @ 4Hr Calcium Phosphorus Magnesium Total Bilirubin AST ALT Alkaline Phosphatase Ammonia Total Creatine Kinase Troponin I High Sens Total Protein Albumin Procalcitonin TSH Free T4 Urine Color YELLOW Urine Appearance HAZY Urine pH 6.0 Ur Specific [place] 1.015 Urine Protein TRACE Urine Glucose (UA) NEG Urine Ketones 5 Urine Blood 2+ H Urine Nitrite NEG Ur Leukocyte Esterase 3+ H Urine RBC 10-14 H Urine WBC 30-49 H Urine WBC Clumps NOTED Ur Squamous Epith Cells NONE Ur Renal Epithelial Cell TRACE Urine Bacteria 3+ Hyaline Casts 1-4 Urine Mucus TRACE Stool Occult Blood POSITIVE Urine Opiates Screen POSITIVE H Urine Fentanyl Screen POSITIVE H Ur Barbiturates Screen Not Detected Ur Phencyclidine Scrn Not Detected Ur Amphetamines Screen Not Detected U Benzodiazepines Scrn Not Detected Urine Cocaine Screen Not Detected U Marijuana (THC) Screen Not Detected Ethyl Alcohol COVID-19 (DMITRI) COVID-19 Clin Com Blood Type Antibody Screen Crossmatch 03/03/21 03/04/21 03/04/21 23:23 00:11 00:11 WBC RBC Hgb Hct MCV MCH MCHC RDW Plt Count MPV Immature Gran % (Auto) Neut % (Auto) Lymph % (Auto) [place] % (Auto) Eos % (Auto) Baso % (Auto) Lymph # (Auto) [place] # (Auto) Eos # (Auto) Baso # (Auto) Abs Immat Gran (auto) Absolute Neuts (auto) Absolute Nucleated RBC Nucleated RBC % (auto) Neutrophils % (Manual) Band Neutrophils % Lymphocytes % (Manual) Monocytes % (Manual) Eosinophils % (Manual) Basophils % (Manual) Metamyelocytes % Abs Neuts (Manual) Lymphocytes # (Manual) Monocytes # (Manual) Metamyelocytes # Nucleated RBCs Toxic Vacuolation Platelet Estimate Large Platelets Plt Morphology Comment RBC Morphology Microcytosis Macrocytosis [place] Cells Schistocytes Smear Path Review PT INR VBG pH VBG pCO2 VBG pO2 VBG HCO3 VBG O2 Saturation VBG Base Excess Sodium Potassium Chloride Carbon Dioxide Anion Gap BUN Creatinine Estim Creat Clear Calc Estimated GFR POC Glucose 106 Random Glucose Fasting Glucose Lactic Acid Lactic Acid Fup @ 2Hr 13.0 H* Lactic Acid Fup @ 4Hr Calcium Phosphorus Magnesium Total Bilirubin AST ALT Alkaline Phosphatase Ammonia Total Creatine Kinase Troponin I High Sens Total Protein Albumin Procalcitonin TSH Free T4 Urine Color Urine Appearance Urine pH Ur Specific [place] Urine Protein Urine Glucose (UA) Urine Ketones Urine Blood Urine Nitrite Ur Leukocyte Esterase Urine RBC Urine WBC Urine WBC Clumps Ur Squamous Epith Cells Ur Renal Epithelial Cell Urine Bacteria Hyaline Casts Urine Mucus Stool Occult Blood Urine Opiates Screen Urine Fentanyl Screen Ur Barbiturates Screen Ur Phencyclidine Scrn Ur Amphetamines Screen U Benzodiazepines Scrn Urine Cocaine Screen U Marijuana (THC) Screen Ethyl Alcohol COVID-19 (DMITRI) COVID-19 Clin Com Blood Type A Negative Antibody Screen NEGATIVE Crossmatch See Detail 03/04/21 03/04/21 03/04/21 00:54 00:54 00:54 WBC 1.5 L RBC 2.21 L Hgb 7.0 L* Hct 22.2 L MCV 100.5 H MCH 31.7 MCHC 31.5 RDW 16.9 H Plt Count 50 L D MPV 11.0 Immature Gran % (Auto) Cancelled Neut % (Auto) Cancelled Lymph % (Auto) Cancelled [place] % (Auto) Cancelled Eos % (Auto) Cancelled Baso % (Auto) Cancelled Lymph # (Auto) Cancelled [place] # (Auto) Cancelled Eos # (Auto) Cancelled Baso # (Auto) Cancelled Abs Immat Gran (auto) Cancelled Absolute Neuts (auto) Cancelled Absolute Nucleated RBC 0.000 Nucleated RBC % (auto) 0.0 Neutrophils % (Manual) 30 L Band Neutrophils % 19 H Lymphocytes % (Manual) 40 Monocytes % (Manual) 6 Eosinophils % (Manual) 1 Basophils % (Manual) 2 Metamyelocytes % 2 Abs Neuts (Manual) 0.7 L Lymphocytes # (Manual) 0.6 L Monocytes # (Manual) 0.1 Metamyelocytes # Nucleated RBCs 2 H Toxic Vacuolation PRESENT Platelet Estimate DECREASED Large Platelets PRESENT Plt Morphology Comment NOTED RBC Morphology NOTED Microcytosis Macrocytosis 1+ (5-14) Neo Cells 1+ (0-2) Schistocytes Smear Path Review PT INR VBG pH VBG pCO2 VBG pO2 VBG HCO3 VBG O2 Saturation VBG Base Excess Sodium 133 L Potassium 3.4 Chloride 100 Carbon Dioxide 12 L Anion Gap 24 H BUN 18 H Creatinine 3.39 H Estim Creat Clear Calc 21.1 Estimated GFR 19 POC Glucose Random Glucose Fasting Glucose 112 H Lactic Acid Lactic Acid Fup @ 2Hr Lactic Acid Fup @ 4Hr Calcium 5.7 L* D Phosphorus Magnesium Total Bilirubin 0.3 AST 49 H D ALT 29 Alkaline Phosphatase 187 H D Ammonia Total Creatine Kinase Troponin I High Sens 4.5 Total Protein 3.2 L D Albumin 1.1 L D Procalcitonin TSH Free T4 Urine Color Urine Appearance Urine pH Ur Specific [place] Urine Protein Urine Glucose (UA) Urine Ketones Urine Blood Urine Nitrite Ur Leukocyte Esterase Urine RBC Urine WBC Urine WBC Clumps Ur Squamous Epith Cells Ur Renal Epithelial Cell Urine Bacteria Hyaline Casts Urine Mucus Stool Occult Blood Urine Opiates Screen Urine Fentanyl Screen Ur Barbiturates Screen Ur Phencyclidine Scrn Ur Amphetamines Screen U Benzodiazepines Scrn Urine Cocaine Screen U Marijuana (THC) Screen Ethyl Alcohol COVID-19 (DMITRI) COVID-19 Clin Com Blood Type Antibody Screen Crossmatch 03/04/21 03/04/21 03/04/21 00:54 00:56 01:58 WBC 1.3 L RBC 2.61 L Hgb 8.3 L Hct 26.0 L MCV 99.6 H MCH 31.8 MCHC 31.9 RDW 17.0 H Plt Count 68 L D MPV 11.3 Immature Gran % (Auto) Cancelled Neut % (Auto) Cancelled Lymph % (Auto) Cancelled [place] % (Auto) Cancelled Eos % (Auto) Cancelled Baso % (Auto) Cancelled Lymph # (Auto) Cancelled [place] # (Auto) Cancelled Eos # (Auto) Cancelled Baso # (Auto) Cancelled Abs Immat Gran (auto) Cancelled Absolute Neuts (auto) Cancelled Absolute Nucleated RBC 0.020 H Nucleated RBC % (auto) 1.6 H Neutrophils % (Manual) 10 L Band Neutrophils % 18 H Lymphocytes % (Manual) 56 H Monocytes % (Manual) 10 Eosinophils % (Manual) Basophils % (Manual) 2 Metamyelocytes % 4 Abs Neuts (Manual) 0.4 L Lymphocytes # (Manual) 0.7 L Monocytes # (Manual) 0.1 Metamyelocytes # 0.1 Nucleated RBCs Toxic Vacuolation PRESENT Platelet Estimate DECREASED Large Platelets PRESENT Plt Morphology Comment NOTED RBC Morphology NOTED Microcytosis Macrocytosis 1+ (5-14) [place] Cells 1+ (0-2) Schistocytes Smear Path Review PT INR VBG pH 6.90 L* VBG pCO2 58 VBG pO2 185 VBG HCO3 12 L VBG O2 Saturation 98.0 VBG Base Excess -19.8 Sodium Potassium Chloride Carbon Dioxide Anion Gap BUN Creatinine Estim Creat Clear Calc Estimated GFR POC Glucose Random Glucose Fasting Glucose Lactic Acid Lactic Acid Fup @ 2Hr Lactic Acid Fup @ 4Hr Calcium Phosphorus Magnesium Total Bilirubin AST ALT Alkaline Phosphatase Ammonia Total Creatine Kinase Troponin I High Sens Total Protein Albumin Procalcitonin 0.84 TSH Free T4 Urine Color Urine Appearance Urine pH Ur Specific [place] Urine Protein Urine Glucose (UA) Urine Ketones Urine Blood Urine Nitrite Ur Leukocyte Esterase Urine RBC Urine WBC Urine WBC Clumps Ur Squamous Epith Cells Ur Renal Epithelial Cell Urine Bacteria Hyaline Casts Urine Mucus Stool Occult Blood Urine Opiates Screen Urine Fentanyl Screen Ur Barbiturates Screen Ur Phencyclidine Scrn Ur Amphetamines Screen U Benzodiazepines Scrn Urine Cocaine Screen U Marijuana (THC) Screen Ethyl Alcohol COVID-19 (DMITRI) COVID-19 Clin Com Blood Type Antibody Screen Crossmatch 03/04/21 03/04/21 03/04/21 01:58 01:58 02:01 WBC RBC Hgb Hct MCV MCH MCHC RDW Plt Count MPV Immature Gran % (Auto) Neut % (Auto) Lymph % (Auto) [place] % (Auto) Eos % (Auto) Baso % (Auto) Lymph # (Auto) [place] # (Auto) Eos # (Auto) Baso # (Auto) Abs Immat Gran (auto) Absolute Neuts (auto) Absolute Nucleated RBC Nucleated RBC % (auto) Neutrophils % (Manual) Band Neutrophils % Lymphocytes % (Manual) Monocytes % (Manual) Eosinophils % (Manual) Basophils % (Manual) Metamyelocytes % Abs Neuts (Manual) Lymphocytes # (Manual) Monocytes # (Manual) Metamyelocytes # Nucleated RBCs Toxic Vacuolation Platelet Estimate Large Platelets Plt Morphology Comment RBC Morphology Microcytosis Macrocytosis Neo Cells Schistocytes Smear Path Review PT INR VBG pH 6.95 L* VBG pCO2 59 VBG pO2 112 VBG HCO3 13 L VBG O2 Saturation 94.0 VBG Base Excess -18.2 Sodium 134 L Potassium 3.2 L Chloride 99 Carbon Dioxide 12 L Anion Gap 26 H BUN 18 H Creatinine 3.49 H Estim Creat Clear Calc 20.5 Estimated GFR 18 POC Glucose Random Glucose 100 Fasting Glucose Lactic Acid Lactic Acid Fup @ 2Hr Lactic Acid Fup @ 4Hr Calcium 5.8 L* Phosphorus 7.2 H Magnesium 1.7 Total Bilirubin 0.5 AST 71 H ALT 34 Alkaline Phosphatase 218 H Ammonia Total Creatine Kinase Troponin I High Sens 4.4 Total Protein 3.7 L Albumin 1.2 L Procalcitonin TSH 4.29 H Free T4 0.54 L Urine Color Urine Appearance Urine pH Ur Specific [place] Urine Protein Urine Glucose (UA) Urine Ketones Urine Blood Urine Nitrite Ur Leukocyte Esterase Urine RBC Urine WBC Urine WBC Clumps Ur Squamous Epith Cells Ur Renal Epithelial Cell Urine Bacteria Hyaline Casts Urine Mucus Stool Occult Blood Urine Opiates Screen Urine Fentanyl Screen Ur Barbiturates Screen Ur Phencyclidine Scrn Ur Amphetamines Screen U Benzodiazepines Scrn Urine Cocaine Screen U Marijuana (THC) Screen Ethyl Alcohol COVID-19 (DMITRI) COVID-19 Clin Com Blood Type Antibody Screen Crossmatch 03/04/21 03/04/21 03/04/21 03:05 05:16 05:16 WBC 1.0 L RBC 2.50 L Hgb 8.0 L Hct 24.6 L MCV 98.4 H MCH 32.0 MCHC 32.5 RDW 17.4 H Plt Count 76 L MPV 11.5 Immature Gran % (Auto) Cancelled Neut % (Auto) Cancelled Lymph % (Auto) Cancelled [place] % (Auto) Cancelled Eos % (Auto) Cancelled Baso % (Auto) Cancelled Lymph # (Auto) Cancelled [place] # (Auto) Cancelled Eos # (Auto) Cancelled Baso # (Auto) Cancelled Abs Immat Gran (auto) Cancelled Absolute Neuts (auto) Cancelled Absolute Nucleated RBC 0.030 H Nucleated RBC % (auto) 3.2 H Neutrophils % (Manual) 60 Band Neutrophils % 12 H Lymphocytes % (Manual) 28 Monocytes % (Manual) Eosinophils % (Manual) Basophils % (Manual) Metamyelocytes % Abs Neuts (Manual) 0.7 L Lymphocytes # (Manual) 0.3 L Monocytes # (Manual) Metamyelocytes # Nucleated RBCs 1 H Toxic Vacuolation PRESENT Platelet Estimate DECREASED Large Platelets PRESENT Plt Morphology Comment NOTED RBC Morphology NOTED Microcytosis Macrocytosis 1+ (5-14) [place] Cells 2+ (3-5) Schistocytes Smear Path Review PT INR VBG pH VBG pCO2 VBG pO2 VBG HCO3 VBG O2 Saturation VBG Base Excess Sodium 135 Potassium 4.1 D Chloride 96 Carbon Dioxide 14 L Anion Gap 29 H BUN 18 H Creatinine 3.57 H Estim Creat Clear Calc 20.0 Estimated GFR 18 POC Glucose Random Glucose 141 H D Fasting Glucose Lactic Acid Lactic Acid Fup @ 2Hr Lactic Acid Fup @ 4Hr 14.0 H* Calcium 6.5 L D Phosphorus 7.4 H Magnesium 1.5 L Total Bilirubin 0.7 AST 76 H ALT 35 Alkaline Phosphatase 206 H Ammonia Total Creatine Kinase Troponin I High Sens Total Protein 3.9 L Albumin 1.4 L Procalcitonin TSH Free T4 Urine Color Urine Appearance Urine pH Ur Specific [place] Urine Protein Urine Glucose (UA) Urine Ketones Urine Blood Urine Nitrite Ur Leukocyte Esterase Urine RBC Urine WBC Urine WBC Clumps Ur Squamous Epith Cells Ur Renal Epithelial Cell Urine Bacteria Hyaline Casts Urine Mucus Stool Occult Blood Urine Opiates Screen Urine Fentanyl Screen Ur Barbiturates Screen Ur Phencyclidine Scrn Ur Amphetamines Screen U Benzodiazepines Scrn Urine Cocaine Screen U Marijuana (THC) Screen Ethyl Alcohol COVID-19 (DMITRI) COVID-19 Clin Com Blood Type Antibody Screen Crossmatch 03/04/21 03/04/21 03/04/21 05:16 05:16 05:19 WBC RBC Hgb Hct MCV MCH MCHC RDW Plt Count MPV Immature Gran % (Auto) Neut % (Auto) Lymph % (Auto) [place] % (Auto) Eos % (Auto) Baso % (Auto) Lymph # (Auto) [place] # (Auto) Eos # (Auto) Baso # (Auto) Abs Immat Gran (auto) Absolute Neuts (auto) Absolute Nucleated RBC Nucleated RBC % (auto) Neutrophils % (Manual) Band Neutrophils % Lymphocytes % (Manual) Monocytes % (Manual) Eosinophils % (Manual) Basophils % (Manual) Metamyelocytes % Abs Neuts (Manual) Lymphocytes # (Manual) Monocytes # (Manual) Metamyelocytes # Nucleated RBCs Toxic Vacuolation Platelet Estimate Large Platelets Plt Morphology Comment RBC Morphology Microcytosis Macrocytosis Neo Cells Schistocytes Smear Path Review PT INR VBG pH 7.02 L* VBG pCO2 58 VBG pO2 85 VBG HCO3 15 L VBG O2 Saturation 91.0 VBG Base Excess -15.1 Sodium Potassium Chloride Carbon Dioxide Anion Gap BUN Creatinine Estim Creat Clear Calc Estimated GFR POC Glucose Random Glucose Fasting Glucose Lactic Acid 18.1 H* Lactic Acid Fup @ 2Hr Lactic Acid Fup @ 4Hr Calcium Phosphorus Magnesium Total Bilirubin AST ALT Alkaline Phosphatase Ammonia 54 Total Creatine Kinase Troponin I High Sens Total Protein Albumin Procalcitonin TSH Free T4 Urine Color Urine Appearance Urine pH Ur Specific [place] Urine Protein Urine Glucose (UA) Urine Ketones Urine Blood Urine Nitrite Ur Leukocyte Esterase Urine RBC Urine WBC Urine WBC Clumps Ur Squamous Epith Cells Ur Renal Epithelial Cell Urine Bacteria Hyaline Casts Urine Mucus Stool Occult Blood Urine Opiates Screen Urine Fentanyl Screen Ur Barbiturates Screen Ur Phencyclidine Scrn Ur Amphetamines Screen U Benzodiazepines Scrn Urine Cocaine Screen U Marijuana (THC) Screen Ethyl Alcohol COVID-19 (DMITRI) COVID-19 Clin Com Blood Type Antibody Screen Crossmatch 03/04/21 08:08 WBC RBC Hgb Hct MCV MCH MCHC RDW Plt Count MPV Immature Gran % (Auto) Neut % (Auto) Lymph % (Auto) [place] % (Auto) Eos % (Auto) Baso % (Auto) Lymph # (Auto) [place] # (Auto) Eos # (Auto) Baso # (Auto) Abs Immat Gran (auto) Absolute Neuts (auto) Absolute Nucleated RBC Nucleated RBC % (auto) Neutrophils % (Manual) Band Neutrophils % Lymphocytes % (Manual) Monocytes % (Manual) Eosinophils % (Manual) Basophils % (Manual) Metamyelocytes % Abs Neuts (Manual) Lymphocytes # (Manual) Monocytes # (Manual) Metamyelocytes # Nucleated RBCs Toxic Vacuolation Platelet Estimate Large Platelets Plt Morphology Comment RBC Morphology Microcytosis Macrocytosis [place] Cells Schistocytes Smear Path Review PT INR VBG pH VBG pCO2 VBG pO2 VBG HCO3 VBG O2 Saturation VBG Base Excess Sodium Potassium Chloride Carbon Dioxide Anion Gap BUN Creatinine Estim Creat Clear Calc Estimated GFR POC Glucose Random Glucose Fasting Glucose Lactic Acid Lactic Acid Fup @ 2Hr 16.2 H* Lactic Acid Fup @ 4Hr Calcium Phosphorus Magnesium Total Bilirubin AST ALT Alkaline Phosphatase Ammonia Total Creatine Kinase Troponin I High Sens Total Protein Albumin Procalcitonin TSH Free T4 Urine Color Urine Appearance Urine pH Ur Specific [place] Urine Protein Urine Glucose (UA) Urine Ketones Urine Blood Urine Nitrite Ur Leukocyte Esterase Urine RBC Urine WBC Urine WBC Clumps Ur Squamous Epith Cells Ur Renal Epithelial Cell Urine Bacteria Hyaline Casts Urine Mucus Stool Occult Blood Urine Opiates Screen Urine Fentanyl Screen Ur Barbiturates Screen Ur Phencyclidine Scrn Ur Amphetamines Screen U Benzodiazepines Scrn Urine Cocaine Screen U Marijuana (THC) Screen Ethyl Alcohol COVID-19 (DMITRI) COVID-19 Clin Com Blood Type Antibody Screen Crossmatch Microbiology Microbiology Results: Microbiology 03/03/21 22:20 Urine Catheterized - Mcmanus Catheter Urine Culture - Preliminary Culture too young to evaluate. Quality Stroke Does the patient have a stroke diagnosis?: No VTE Prior VTE?: No VTE Risk Level:: Medical - low VTE Device Contraindication: N/A - Device Ordered VTE Drug Contraindication: Treatment Not Tolerated Critical Care Time Critical Care Time (minutes): 150
[2021-03-04] MEDS: Albumin Human 25 % 100 ML 200 ML IV (11:14)
[2021-03-04 11:16] LABS: Hemoglobin 7.4 g/dl (14.0-18.0); Mean Corpuscular HGB Conc 32.2 g/dl (31.0-36.0); Mean Corpuscular Hemoglobin 31.8 pg (27.0-33.0); Mean Corpuscular Volume 98.7 fL (80.0-98.0); Mean Platelet Volume 11.9 fL (9.4-12.4); Red Blood Count 2.33 X10*6/uL (4.60-5.80)
[2021-03-04 11:21] LABS: Platelet Count 72 X10*3/uL (160-400); White Blood Count 1.1 X10*3/uL (4.8-10.8)
[2021-03-04 11:34] LABS: Anion Gap 29 (12-20); Blood Urea Nitrogen 18 mg/dL (9-16); Calcium 6.2 mg/dL (8.4-10.2); Carbon Dioxide 16 mmol/L (22-29); Chloride 94 mmol/L (96-108); Creatinine Clr Calc Pharmacy 19.3; Estimated Glomerular Filt Rate 17; Glucose Random 157 mg/dL (60-115); Magnesium 1.5 mg/dL (1.6-2.6); Potassium 3.7 mmol/L (3.3-5.1); Sodium 135 mmol/L (135-145)
[2021-03-04 11:52] LABS: Lactic Acid 18.4 mmol/L (0.5-2.0)
[2021-03-04 13:09] LABS: Reflex Lactate? Lactic Acid Added
--- NOTE | 2021-03-04 13:34 | MHC.CM.PN ---
Pt intubated and made SIZE MIXER d/t shock. He is expected to pass. CM will follow should plans change
--- NOTE | 2021-03-04 14:53 | PC.NURSE ---
Salome-mother/HCP decided to withdraw care. aware. Fentanyl turned up per EMAR for comfort. Levophed and Epinephrine titrated per EMAR. Pt Extuabted at 1200 with respiratory. Pt passed at 1205, Salome at bedside. [facility] called and declined- . called ME- case accepted- . home- [facility] in [place], updated on ME acceptance.
--- NOTE | 2021-03-04 19:53 | P.DN_ITS ---
Discharge Sum: Prov Provider Primary care physician: Unknown Physician Admitting clinician: Corie Godwin Attending physician on admission: Virgil Bush Pronouncing clinician: Virgil Bush Discharge Sum: Diag PCOD Cause of : Septic shock Contributing Factors (1) Altered mental status: (2) Septic shock: (3) Acute respiratory failure: (4) Pneumonia: (5) Acute renal failure: (6) Cardiac arrest with successful resuscitation: (7) Intravenous drug abuse, continuous: (8) Alcohol use disorder, moderate, dependence: (9) Metabolic acidosis: (10) TBI (traumatic brain injury): (11) Malnutrition, calorie: (12) Anemia: (13) Metabolic encephalopathy: (14) Diabetes: (15) History of Clostridioides difficile infection: Discharge Sum: Summary Date and Time Date of admission: 03/04/21 01:35 Date of : 03/04/21 Time of : 12:05 Summary Details: Patient in refractory septic shock, status post cardiac arrest, on multiple pressors, in kidney failure with very grim prognosis, please see notes from earlier today for details. This morning, patient's mother and sister came in and spoke with Dr Bush at length in the waiting room.? They talked about his past medical history and his lack of self-care and has destructive behaviors.? He explained to them the nature of refractory septic shock and the very poor prognosis.? He discussed with them that at this point we still did not have any source for the sepsis.? They discussed the possibility that it might be C diff although that was unlikely without significant CT findings. ?They did not want any additional heroic interventions, they declined transfer to [facility], and they declined any kind of surgery. 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 They requested withdrawal of critical care support.? I had previously expressed to them that there was no chance of survival.? Dr Bush told the patient's mother that he agreed with her decision. The patient was made comfortable with fentanyl, changed over to pressure support ventilation with a good spontaneous rate, and then extubated to room air.? The patient a short time later.? Time of was 12:05. Additional Data Confirmation of as documented by pronouncing clinician: no pulse, no respirations, no heart sounds and pupils fixed and dilated Family: at bedside Attending/PCP notified?: No Attending physician: Dr Virgil Bush Was code activated?: No Autopsy requested?: Yes crime scene examiner notified?: Yes Organ bank notified?: Yes Advance directives: No Hospice patient?: No
--- NOTE | 2021-03-08 13:24 | PM.DDS ---
Discharge Sum: Prov Provider Primary care physician: Unknown Physician Admitting clinician: Virgil Bush Pronouncing clinician: Virgil Bush Discharge Sum: Diag Contributing Factors (1) Altered mental status: (2) Septic shock: (3) Acute respiratory failure: (4) Pneumonia: (5) Acute renal failure: (6) Cardiac arrest with successful resuscitation: (7) Intravenous drug abuse, continuous: (8) Alcohol use disorder, moderate, dependence: (9) Metabolic acidosis: (10) TBI (traumatic brain injury): (11) Malnutrition, calorie: (12) Anemia: (13) Metabolic encephalopathy: (14) Diabetes: (15) History of Clostridioides difficile infection: Discharge Sum: Summary Date and Time Date of admission: 03/04/21 01:35 Date of : 03/04/21 Time of : 12:05 Summary Details: ? NOTE DISCHARGE DIAGNOSES: 1. Underlying severe protein calorie malnutrition. 2. IV drug abuse.? 3. Refractory septic shock, of undetermined etiology. 4. Acute respiratory failure. 5. Left lower lobe pneumonia. 6. DEEPTHI. 7. Severe metabolic acidosis. 8. Severe metabolic/septic encephalopathy. 9. Anemia 10. GI bleed 11. H/o CDiff colitis 12. H/o DM 13. H/o sz, 2? TBI. Mr. Worley was BIBA to the ED at [facility] late on Mar 03 after being found unresponsive at home. 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 ?The patient was also a drug abuser of many diff kinds of drugs, and also alcohol. ?According to his mother, Moreno had C. Diff colitis at [facility] the previous August. EMS was called because he was found unresponsive at home.? At the scene, the patient was hypothermic, hypotensive, and hypoglycemic, with a blood glucose of 36. ?The patient was breathing, with reported sat of 98% on nasal cannula oxygen. ?The patient was given D10, glucagon, and Narcan.? ?He was BIBA to the ED at approximately 21:40. In the ED, the patient was grossly cachectic. ?He was responsive only to pain. ??He was breathing with a sat of 100% on non-rebreather face mask. ?Heart rate on arrival was 74, blood pressure 119/81. ?Temperature was 90.3 degrees. ?He was moving all 4 extremities spontaneously. ?Abdominal exam reportedly showed diffuse tenderness. Labs showed marked lactic acidosis with acute kidney injury. ?White count was 0.8, with hemoglobin of 7.7, platelet count of 75K. ?Venous blood gas showed a base excess of -8. ?Bicarb was 15, glucose was 140s, albumin was 1.4. ?INR was 2.7. ??He went for head, chest, and abdominal CT. ?The only remarkable finding was a small left lower lobe consolidation with air bronchograms. ?Head and abdominal CT were unremarkable, other than ascites. A Jaskaran Hugger was applied. ?The patient had brownish vomitus, concern for upper GI bleed. ?Stool was guaiac positive, but brown in color. ?After return from CT, the patient's hemodynamics deteriorated. ?The patient became progressively bradycardic and then pulseless. ?CPR was initiated. ?There was return of spontaneous circulation after one round of epi and 1 amp of bicarb. ?The patient was intubated and lined. ?Pressors were started, including epinephrine. After 3L of fluids, the patient had JVD to the angle of the mandible.? But there was no edema. Bedside echo done with the patient on medium dose epinephrine was notable for normal LV cavity size; normal LV function; normal RV size and fxn; biatrial enlargement; 2+ MR; 2+ TR; IVC measured 1.6cm with about 20% insp collapse. Repeat VBG showed severe metabolic acidosis. ?The patient was given bicarbonate and NMB.? He was then transferred to the ICU. Overnight in the ICU, he was given multiple amps of bicarbonate. ?In the morning, on epinephrine 0.7 mcg, he was mildly hypotensive. ?A femoral arterial line was placed.? Repeat echo was unchanged, with EF at least 50%, but contractility did not look quite as vigorous as earlier. ?Right heart and IVC were the same, with exact same IVC measurement. Intravenous thyroid was ordered. ?Because of the blood smear, the patient was also given a dose of doxycycline in case of a rickettsial disease.? The patient was still acidotic, despite the bicarbonate drip, the creatinine was still 3.7, despite resuscitation, and lactic acid was still 18. The patient's mother and sister came in and the situation was discussed with them at length. ?They did not want any additional heroic interventions, they declined transfer to [facility], and they declined any kind of surgery.? I discussed the patient's situation by phone with the general surgeon on-call at [facility].? He had little to offer. 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 The patient was made comfortable, changed over to pressure support ventilation with a good spontaneous rate, and then extubated to room air. ?The patient a short time later. ?Time of was 12:05. The medical collector excepted the case (because of the TBI and the positive tox screen). ?senior examiner accepting the case: ?Jerri Steven. ?Case# [id number]. Additional Data Attending physician: Corie Godwin PA-C
== END 2021-03-04 12:05 | disposition expired | DRG 871 ==
LOC: HO.ED 03-04 01:27 → HO.ICU 03-04 01:41
PROVIDERS: Anesthesiology; Admitting Provider Physician Assistant; Emergency Provider Student in an Organized Health Care Education/Training Program; Visit Provider Physician Assistant
DX: A41.9 Sepsis, unspecified organism (principal); R65.21 Severe sepsis with septic shock; J96.01 Acute respiratory failure with hypoxia; J18.9 Pneumonia, unspecified organism; E43 Unspecified severe protein-calorie malnutrition; G93.41 Metabolic encephalopathy; N17.9 Acute kidney failure, unspecified; F10.20 Alcohol dependence, uncomplicated; G40.909 Epilepsy, unspecified, not intractable, without status epilepticus; F19.10 Other psychoactive substance abuse, uncomplicated; E11.649 Type 2 diabetes mellitus with hypoglycemia without coma; Z87.820 Personal history of traumatic brain injury; Z20.822 Contact with and (suspected) exposure to COVID-19; Z68.26 Body mass index [BMI] 26.0-26.9, adult; Z88.5 Allergy status to narcotic agent; Z51.5 Encounter for palliative care; Z86.74 Personal history of sudden cardiac arrest
CPT/HCPCS: 36415; 70450; 71045; 71250; 74176; 80048; 80053; 80307; 81001; 82077; 82140; 82272; 82550; 82803; 82947; 83605; 83735; 84100; 84145; 84439; 84443; 84484; 85007; 85025; 85027; 85610; 86850; 86900; 86901; 86920; 86923; 87040; 87070; 87086; 87186; 87205; 87635; 93005; 94002; 94003; 99284; J0171; J0456; J0461; J0610; J0696; J3010; J3475; P9016; P9047